=== PATIENT | female | born 1955 ===

== ENCOUNTER 2019-08-25 09:48 | Inpatient (IN) ==
[2019-08-25] MEDS ORDERED: IOPAMIDOL 100 ML BOTTLE IV ONE (09:49)
[2019-08-25] MEDS ORDERED: GADOBENATE DIMEGLUMINE 15 ML/VIAL IV ONE (09:49)
[2019-08-25] MEDS ORDERED: ONDANSETRON 4 MG/2 ML VIAL IV ONE ×3 (10:06→19:01)
[2019-08-25] MEDS ORDERED: 0.9 % SODIUM CHLORIDE 1,000 ML IV ONE ×2 (10:06→11:21)
--- NOTE | 2019-08-25 10:11 | Emergency Department Note ---
Nausea/Vomiting/Diarrhea HPI - General Chief complaint: Nausea/Vomiting/Diarrhea Stated complaint: right leg pain, nausea Time Seen by Provider: 08/25/19 09:52 Source: patient Mode of arrival: ambulatory Limitations: no limitations - History of Present Illness HPI Narrative: 63-year-old female patient presents emergency department once again with chief c omplaint now nausea, vomiting, and diarrhea. Patient was seen yesterday evening by a colleague for developing pain behind her right knee. This was evaluated ultrasound and found not to have a DVT. She was released home with conservative therapy. She tells me while at home she ate a "frozen dinner". Soon afterwards she developed the nausea, vomiting, diarrhea. She denies that food tasting foul or suspicious. She denies any other sick contacts at home with similar symptoms. She is vomited too numerous to count. She is had 3 episodes of diarrhea today. She denies any hematemesis or hematochezia. Patient denies any systemic fever, sweats, chills. Patient denies shortness of breath. Patient denies retrosternal chest pain or palpitations. Patient denies over abdominal pain or cramping. Patient denies dysuria or hematuria. Patient denies focal weakness. Concerning her right knee, patient denies preceding trauma. She does admit that the pain is worsened slightly since being seen yesterday. Patient's past medical history is consistent for asthma. - Related Data Home Medications Medication Instructions Recorded Confirmed albuterol sulfate 2.5 mg/0.5 mL 2.5 mg INHALATION Q20M 08/18/19 08/18/19 solution for nebulization albuterol sulfate 90 mcg/actuation 2 puff INHALATION Q6H PRN 08/18/19 08/18/19 aerosol inhaler compressor, for nebulizer See Rx Instructions .ROUTE 08/18/19 08/18/19 .MEDSUPPLY #1 each conj estrog-medroxyprogest evelina PO QDAY 08/18/19 08/18/19 fluticasone 500 mcg-salmeterol 50 1 inh INHALATION BID 08/18/19 08/18/19 mcg/dose blistr powdr for inhalation montelukast 10 mg tablet 10 mg PO QDAY 08/18/19 08/18/19 Previous Rx's Medication Instructions Recorded azithromycin 250 mg tablet See Rx Instructions PO .COMPLEX #6 08/18/19 tab prednisone 20 mg tablet See Rx Instructions PO QDAY #27 tab 08/18/19 Allergies Allergy/AdvReac Type Severity Reaction Status Date / Time Sulfa (Sulfonamide Allergy Intermediate RASH Verified 08/25/19 09:51 Antibiotics) [SULFA(SULFONAMIDE ANTIBIOTICS)] Review of Systems All systems ED: reviewed and negative except as stated. Past Medical History - Social History smoking status: Never smoker Physical Exam Limitations: no limitations General appearance: alert, in no apparent distress, other (Well-developed, well- nourished, acutely ill-appearing 63-year-old female patient sitting semire cumbent on the emergency room gurney no acute respiratory distress.) Head: atraumatic, normocephalic Eye: Present: normal appearance, PERRL, EOMI. Absent: scleral icterus, conjunctival injection ENT: Present: normal oropharynx, mucous membranes dry Neck: Present: trachea midline. Absent: lymphadenopathy, thyromegaly Chest: Present: symmetric chest wall rise Respiratory: Present: wheezes (Expiratory wheezing heard throughout the chest.), prolonged expiratory phase, decreased breath sounds. Absent: normal lung sounds bilaterally, respiratory distress, rales/crackles, stridor, accessory muscle use Cardiovascular: Present: regular rate, normal rhythm. Absent: systolic murmur, diastolic murmur Abdominal: Present: soft, diminished bowel sounds. Absent: distention, tenderness, guarding, rebound, rigidity, organomegaly, mass Extremities: Present: full ROM, tenderness (Exquisite tenderness elicited to palpation of the popliteal fossa of the right knee. Moderate warmth and redness noted on exam. No obvious fluctuance or pustule. No drainage. No streaking.), normal capillary refill. Absent: normal inspection, pedal edema Back: Present: normal inspection, full ROM Neurological: Present: alert, oriented X3 Psychiatric: Present: normal affect, normal mood Skin: Present: warm, dry, other (Skin changes noted to the right popliteal fossa.) Course Course Narrative: Patient was brought into the emergency department and a history and physical exam was performed. Saline lock was established and routine laboratory studies were drawn. Normal saline was started 1000 mL bolus. Patient was given 4 mg of Zofran IVP. Upon reevaluation patient continues to complain of pain to her right knee. She was given Toradol 30 mg IVP. Review of her laboratory studies show the following: CBC WBC 32.1, granulocyte percent 94.2, granulocyte #3.29, all others normal limits. Chemistry panel sodium 132, glucose 115, ionized calcium 0.99. After reviewing this I discussed the case with my collaborating physician (Dr. Crowley). At this time she has no known focal area of infection other than behind her right knee. With this in mind, she is going be scheduled for an MRI of the right knee to help rule out septic arthropathy. In the interim I will also going to order a, procalcitonin, blood cultures, chest x- ray, and an abdominal CT scan to help rule out other causes of infection. Upon reevaluation patient continues to complain of pain to her knee. With this in mind, she was given Dilaudid 0.[address] scan read by the radiologist as diverticulosis with mild ileus pattern. There was mention of a hemangioma to the right lobe of the liver. No focal area of infection was identified. MRI of the right knee did show severe cellulitis knee stranding into the distal thigh. Radiologist mentions a septic joint with synovitis. There was no evidence of osteomyelitis or abscess. After reviewing on this additional data I discussed the case once again my collaborating physician. At this time it was recommended that I consult the on- call orthopedic surgeon (Dr. Salmon) about the septic arthropathy develop to the patient's right knee. I reached out to the on-call orthopedic surgeon who mentioned that an MRI of the knee showing evidence of infection thorough evaluation. He recommended an attempt at obtaining a fluid sample and sending this for cell count and culture. Knowing this, I sent the patient to radiology for an ultrasound-guided knee aspiration. Approximately 2 milliliters of clear yellow urine was drained from the knee itself. This is sent to the laboratory for Gram stain and culture. Patient was evaluated by the orthopedic surgeons PA and during this time patient expressed worsening fever and generalized malaise. Repeat temperature showed an slight increase to 99. Due to her worsening condition, she was started on vancomycin 1000 mg IV. Upon reevaluation patient continues to complain of some mild nausea. She is vomited x1 this is being emergency department. She was given repeat Zofran 4 mg IVP. Unfortunately 40 minutes later she continues to feel somewhat queasy. Dr. Salmon came down evaluate the patient himself and determined that this is likely not a septic joint but he wants to wait for the official culture report to come back for the fluid that was aspirated. However, due to the patient's worsening condition, leukocytosis, and significant cellulitis I reached out to the hospitalist (Dr. Macario) about having the patient admitted for further evaluation. I discussed the case with the hospitalist who concurred that the patient should be admitted for further evaluation and management. At this time patient is going to be admitted as mentioned, all further treatment decisions, modalities, and ultimate patient disposition will be carried out by the hospitalist with orthopedic surgery consultation. Vital Signs Temperature 96.8 F L 08/25/19 09:49 Pulse Rate 103 H 08/25/19 09:49 Respiratory Rate 16 08/25/19 09:49 Blood Pressure 109/46 08/25/19 09:49 Pulse Oximetry (%) 96 08/25/19 09:49 Temperature 96.8 F L 08/25/19 09:49 Pulse Rate 90 08/25/19 14:55 Respiratory Rate 16 08/25/19 09:49 Blood Pressure 104/63 08/25/19 14:55 Pulse Oximetry (%) 93 08/25/19 14:55 Nausea/Vomiting/Diarrhea - Lab Data Lab results reviewed: Yes I reviewed the patient's lab results. Result diagrams: 08/25/19 10:10 Lab Results 08/25/19 08/25/19 08/25/19 Range/Units 10:10 10:38 10:38 WBC 32.1 H* (4.50-11.00) K/mcL RBC 4.28 (3.59-5.38) M/mcL Hgb 12.8 (11.2-15.7) g/dL Hct 37.8 (34.1-44.9) % POC Hct 36.0 (36.0-48.0) % MCV 88.3 (80.0-100.0) fL MCH 29.9 (26.0-34.0) pg MCHC 33.9 (31.0-36.0) g/dL RDW 12.7 (11.5-14.5) % Plt Count 435 (140-440) K/mcL MPV 9.8 (7.4-10.4) fL Gran % 94.2 H (38.0-78.0) % Lymph % (Auto) 2.9 L (15.5-49.0) % [place] % (Auto) 2.1 (1.0-12.0) % Eos % (Auto) 0.5 (0.0-7.0) % Baso % (Auto) 0.3 (0.0-2.0) % Gran # 30.29 H (1.80-8.00) K/mcL Lymph # (Auto) 0.93 L (1.50-4.80) K/mcL [place] # (Auto) 0.67 (0.10-0.90) K/mcL Eos # (Auto) 0.16 (0.00-0.70) K/mcL Baso # (Auto) 0.09 (0.00-0.30) K/mcL Differential Comment VBG Lactic Acid (0.5-2.0) mmol/L POC Sodium 132 L (133-145) mmol/L POC Potassium 3.6 (3.3-5.1) mmol/L POC Chloride 97 (96-108) mmol/L POC Total CO2 25 (22-30) mmol/L POC BUN 16 (8-23) mg/dl POC Creatinine 0.8 (0.6-1.1) mg/dl POC Glucose 115 H (70-105) mg/dL POC WB Ioniz Calcium 0.99 L (1.16-1.32) mmol/L Procalcitonin 4.11 (<0.10) ng/mL Fluid Source Fluid Color Fluid Appearance Fluid RBC Fluid Tot Cell Count Fluid Nucleated Cells Fluid Neutrophils Fluid Lymphocytes Fluid Monocytes Fluid Eosinophils Fluid Basophils Fluid Plasma Cells Fluid Macrophages Fld Mesothelial Cells Synovial Source Synovial Color Synovial Appearance Synovial Tot Cell Ct Synovial Nuc Cells /cumm Synovial Lymphocytes Synovial Other Cells Synovial Diff Comment 08/25/19 08/25/19 08/25/19 Range/Units 12:19 15:47 15:47 WBC (4.50-11.00) K/mcL RBC (3.59-5.38) M/mcL Hgb (11.2-15.7) g/dL Hct (34.1-44.9) % POC Hct (36.0-48.0) % MCV (80.0-100.0) fL MCH (26.0-34.0) pg MCHC (31.0-36.0) g/dL RDW (11.5-14.5) % Plt Count (140-440) K/mcL MPV (7.4-10.4) fL Gran % (38.0-78.0) % Lymph % (Auto) (15.5-49.0) % [place] % (Auto) (1.0-12.0) % Eos % (Auto) (0.0-7.0) % Baso % (Auto) (0.0-2.0) % Gran # (1.80-8.00) K/mcL Lymph # (Auto) (1.50-4.80) K/mcL [place] # (Auto) (0.10-0.90) K/mcL Eos # (Auto) (0.00-0.70) K/mcL Baso # (Auto) (0.00-0.30) K/mcL Differential Comment VBG Lactic Acid 1.2 (0.5-2.0) mmol/L POC Sodium (133-145) mmol/L POC Potassium (3.3-5.1) mmol/L POC Chloride (96-108) mmol/L POC Total CO2 (22-30) mmol/L POC BUN (8-23) mg/dl POC Creatinine (0.6-1.1) mg/dl POC Glucose (70-105) mg/dL POC WB Ioniz Calcium (1.16-1.32) mmol/L Procalcitonin (<0.10) ng/mL Fluid Source TNP Fluid Color TNP Fluid Appearance TNP Fluid RBC TNP Fluid Tot Cell Count TNP Fluid Nucleated Cells TNP Fluid Neutrophils Not Reportable Fluid Lymphocytes Not Reportable Fluid Monocytes Not Reportable Fluid Eosinophils Not Reportable Fluid Basophils Not Reportable Fluid Plasma Cells Not Reportable Fluid Macrophages Not Reportable Fld Mesothelial Cells Not Reportable Synovial Source Synovial Synovial Color Pale yellow Synovial Appearance Clear Synovial Tot Cell Ct Not Reportable Synovial Nuc Cells 212 /cumm Synovial Lymphocytes Not Reportable Synovial Other Cells Not Reportable Synovial Diff Comment Not Reportable - Radiology Data Radiology results reviewed: Yes I reviewed the patient's radiology results. Ordering Physician: Angel Crowley M.D. Date of Service: 08/25/19 Procedure(s): CT abdomen pelvis w con Accession Number(s): [id number] History: Nausea and elevated white blood cell count TECHNIQUE: The patient was imaged following intravenous contrast scanning during the portal venous phase and the delayed excretory phase from the diaphragm to the symphysis pubis. Sagittal and coronal reformats were created. Radiation exposure was limited using dose reduction technology. FINDINGS: Posteriorly in segment seven of the right lobe of the liver there is a 3 cm mass. Centrally it has low attenuation. It enhances from the periphery. On the delayed images the periphery of the nodule is becoming nearly isodense with adjacent liver parenchyma. This has features characteristic of a hemangioma. No other liver mass is present. The overall size liver is normal. The bile ducts are nondilated. The gallbladder is normal with no stones or thickening of the wall. The spleen and pancreas are normal. The adrenals are normal and symmetric. There is a 1.3 cm cortical cyst anteriorly in the lower portion of the left kidney. The kidneys are otherwise normal, without evidence of inflammation, stone or hydronephrosis. The aorta is normal in caliber. There are a few scattered calcified plaques in the distal aorta. Multiple diverticula are present in the sigmoid colon. There is no evidence of acute diverticulitis. The appendix is noninflamed. There are several fluid-filled loops of borderline distended small intestine in the mid abdomen. It measured 2.8 cm in diameter. The wall does not appear thickened or inflamed. No ascites or adenopathy are present. No intra-abdominal abscess is present. Uterus ovaries and bladder appear normal. IMPRESSION: Diverticulosis Mild ileus pattern. Hemangioma in the right lobe of the liver Dr. Crowley was called with the results Interpreted and Authenticated by: Donovan Grajeda 08/25/19 Ordering Physician: Mohit Fisher PA-C Date of Service: 08/25/19 Procedure(s): MR knee RT wo/w con Accession Number(s): [id number] History: Septic right knee with elevated white blood cell count and tenderness in the popliteal fossa TECHNIQUE: Multiplanar imaging was performed using multiple pulse sequences. MultiHance contrast was injected intravenously and multiphasic fat-suppressed T1-weighted views were obtained. FINDINGS: There is severe cellulitis in the popliteal fossa and skin along the posterior aspect of the knee. No abscess is present. The inflammation extends outside of the field of view in the lower thigh and extends to the proximal calf. There is also myositis in the muscles along the posterior medial side of the popliteal fossa. Small joint effusion is present. The postcontrast view show mild thickening and abnormal enhancement of the synovium, especially in the suprapatellar bursa. There is no bone erosion or bone marrow edema. No spur formation is present. The joint spaces are normal in width and alignment. There is no apparent loss of articular cartilage. Medial and lateral menisci are normal. The anterior and posterior cruciate ligaments are intact. Medial and lateral collateral ligaments are also intact. IMPRESSION: Severe cellulitis along the posterior aspect of the knee standing into the distal thigh. Septic joint with synovitis No evidence of osteomyelitis or abscess Dr. Crowley was called with the results Interpreted and Authenticated by: Donovan Grajeda 08/25/19 Ordering Physician: Mohit Fisher PA-C Date of Service: 08/25/19 Procedure(s): US guided bea/sergei large joint Accession Number(s): [id number] History: Cellulitis around the right knee with small joint effusion TECHNIQUE: The procedure and risks were explained and the patient consented. A very small suprapatellar joint effusion was localized. The overlying skin was prepped with ChloraPrep and then anesthetized with 1% lidocaine. Using ultrasound guidance a 20-gauge needle was inserted into the joint space. 2 cc of clear slightly yellow-colored fluid was removed and sent to laboratory for analysis. All of the visualized fluid was drained. She tolerated the procedure well without complication. IMPRESSION: Successful aspiration of fluid from the right knee Interpreted and Authenticated by: Donovan Grajeda 08/25/19 Disposition Pt seen by [employer]/PA only: Yes Clinical Impression: Cellulitis of right knee Nausea & vomiting Qualifiers: Vomiting type: unspecified Vomiting Intractability: non-intractable Qualified Code(s): R11.2 - Nausea with vomiting, unspecified Disposition: Xfer As Inpt ([facility]) Condition: Fair Additional Instructions: Patient is going to be admitted to the hospital under the care of the hospitalist (Dr. Landeros). All further treatment decisions, modalities, and ultimate patient disposition will be carried out by the hospitalist with orthopedic surgery in consultation. Referrals: Petty Cornejo MD [Primary Care Provider] -
[2019-08-25] MEDS ORDERED: ACETAMINOPHEN 325 MG TABLET PO ONE (10:42)
[2019-08-25 10:51] LABS: POC Blood Urea Nitrogen 16 mg/dl (8-23); POC CO2 25 mmol/L (22-30); POC Calcium, Ionized 0.99 mmol/L (1.16-1.32); POC Chloride 97 mmol/L (96-108); POC Creatinine 0.8 mg/dl (0.6-1.1); POC Glucose, Random 115 mg/dL (70-105); POC Potassium 3.6 mmol/L (3.3-5.1); POC Sodium 132 mmol/L (133-145)
[2019-08-25] MEDS ORDERED: cefTRIAXone 1 GM VIAL IV ONE (11:15)
[2019-08-25] MEDS ORDERED: KETOROLAC 30 MG/ML VIAL IV ONE (11:21)
[2019-08-25 12:03] LABS: Basophils # (Auto) 0.09 K/mcL (0.00-0.30); Basophils % (Auto) 0.3 % (0.0-2.0); Eosinophils # (Auto) 0.16 K/mcL (0.00-0.70); Eosinophils % (Auto) 0.5 % (0.0-7.0); Granulocytes % (Auto) 94.2 % (38.0-78.0); Hematocrit 37.8 % (34.1-44.9); Hemoglobin 12.8 g/dL (11.2-15.7); Lymphocytes # (Auto) 0.93 K/mcL (1.50-4.80); Lymphocytes % (Auto) 2.9 % (15.5-49.0); Mean Cell Volume 88.3 fL (80.0-100.0); Mean Corpuscular HGB Conc 33.9 g/dL (31.0-36.0); Mean Platelet Volume 9.8 fL (7.4-10.4); Monocytes # (Auto) 0.67 K/mcL (0.10-0.90); Monocytes % (Auto) 2.1 % (1.0-12.0); Platelet Count 435 K/mcL (140-440); RBC 4.28 M/mcL (3.59-5.38); Red Cell Distribution Width 12.7 % (11.5-14.5); WBC 32.1 K/mcL (4.50-11.00)
--- NOTE | 2019-08-25 14:09 | Cat Scan Report ---
History: Nausea and elevated white blood cell count TECHNIQUE: The patient was imaged following intravenous contrast scanning during the portal venous phase and the delayed excretory phase from the diaphragm to the symphysis pubis. Sagittal and coronal reformats were created. Radiation exposure was limited using dose reduction technology. FINDINGS: Posteriorly in segment seven of the right lobe of the liver there is a 3 cm mass. Centrally it has low attenuation. It enhances from the periphery. On the delayed images the periphery of the nodule is becoming nearly isodense with adjacent liver parenchyma. This has features characteristic of a hemangioma. No other liver mass is present. The overall size liver is normal. The bile ducts are nondilated. The gallbladder is normal with no stones or thickening of the wall. The spleen and pancreas are normal. The adrenals are normal and symmetric. There is a 1.3 cm cortical cyst anteriorly in the lower portion of the left kidney. The kidneys are otherwise normal, without evidence of inflammation, stone or hydronephrosis. The aorta is normal in caliber. There are a few scattered calcified plaques in the distal aorta. Multiple diverticula are present in the sigmoid colon. There is no evidence of acute diverticulitis. The appendix is noninflamed. There are several fluid-filled loops of borderline distended small intestine in the mid abdomen. It measured 2.8 cm in diameter. The wall does not appear thickened or inflamed. No ascites or adenopathy are present. No intra-abdominal abscess is present. Uterus ovaries and bladder appear normal. IMPRESSION: Diverticulosis Mild ileus pattern. Hemangioma in the right lobe of the liver Dr. Crowley was called with the results Interpreted and Authenticated by: Donovan Grajeda 08/25/19
--- NOTE | 2019-08-25 14:21 | Magnetic Resonance Report ---
History: Septic right knee with elevated white blood cell count and tenderness in the popliteal fossa TECHNIQUE: Multiplanar imaging was performed using multiple pulse sequences. MultiHance contrast was injected intravenously and multiphasic fat-suppressed T1-weighted views were obtained. FINDINGS: There is severe cellulitis in the popliteal fossa and skin along the posterior aspect of the knee. No abscess is present. The inflammation extends outside of the field of view in the lower thigh and extends to the proximal calf. There is also myositis in the muscles along the posterior medial side of the popliteal fossa. Small joint effusion is present. The postcontrast view show mild thickening and abnormal enhancement of the synovium, especially in the suprapatellar bursa. There is no bone erosion or bone marrow edema. No spur formation is present. The joint spaces are normal in width and alignment. There is no apparent loss of articular cartilage. Medial and lateral menisci are normal. The anterior and posterior cruciate ligaments are intact. Medial and lateral collateral ligaments are also intact. IMPRESSION: Severe cellulitis along the posterior aspect of the knee standing into the distal thigh. Septic joint with synovitis No evidence of osteomyelitis or abscess Dr. Crowley was called with the results Interpreted and Authenticated by: Donovan Grajeda 08/25/19
[2019-08-25] MEDS: HYDROmorphone 2 MG/ML VIAL IV PRN ×2 (14:25→17:01)
--- NOTE | 2019-08-25 15:00 | Emergency Department Note ---
ED Note Addendum Note Addendum: I saw this patient with Mohit Fisher PA-C and examined her myself. I agree with his evaluation management documentation. We discussed work-up of her right knee pain. Suspect septic arthritis. MRI confirms. Mohit discussed case with Dr. Salmon and he recommended arthrocentesis. Antibiotics are ordered. Arthrocentesis was done and results are pending. She was admitted to hospitalist with orthopedics consulted
--- NOTE | 2019-08-25 16:27 | Ultrasound Report ---
History: Cellulitis around the right knee with small joint effusion TECHNIQUE: The procedure and risks were explained and the patient consented. A very small suprapatellar joint effusion was localized. The overlying skin was prepped with ChloraPrep and then anesthetized with 1% lidocaine. Using ultrasound guidance a 20-gauge needle was inserted into the joint space. 2 cc of clear slightly yellow-colored fluid was removed and sent to laboratory for analysis. All of the visualized fluid was drained. She tolerated the procedure well without complication. IMPRESSION: Successful aspiration of fluid from the right knee Interpreted and Authenticated by: Donovan Grajeda 08/25/19
[2019-08-25] MEDS ORDERED: VANCOMYCIN 1,000 MG in 0.9 % SODIUM CHLORIDE 250 ML IV ONE (16:37)
[2019-08-25 17:49] LABS: Appearance,Synovial Fluid CLEAR; Color,Synovial Fluid PALE YELLOW; Nucleated Cells,Synovial Fld 212 /cumm
--- NOTE | 2019-08-25 17:53 | Orthopedic History & Physical ---
History of Present Illness Patient information: Note initiated : 08/25/19 at 5:48 pm Service Date, if different from initiated Date: [] Patient: Yoselin Escobedo a 63 y/o F admitted on for Right Leg Pain, Nausea. Chief Complaint: [] HPI: Ms. Escobedo is a 63 year old female who presented to the ED today with worsening nausea and vomiting. She has felt chilled at home but had no fevers. She has had worsening pain in the posterior aspect of the right knee in the popliteal fossa. Redness in the area since yesterday. She was diagnosed with a cellulitis in the ED prompting orthopaedic evaluation. Associated symptoms include a wound on her right foot from eczema and a recent redness in her left finger that has since resolved. Also recently placed on steroids for some "chest congestion" which has helped but she did not use her Z pack as she was instructed not to. She denies any CP, GUILLEN, fever, numbness/tingling, urinary changes, dysuria, or any other acute symptoms. Review of Systems Constitutional: as per HPI Nose, mouth and throat: as per HPI Cardiovascular: as per HPI Respiratory: as per HPI Gastrointestinal: as per HPI Genitourinary: as per HPI Musculoskeletal: as per HPI Integumentary: as per HPI Neurological: as per HPI Psychiatric: as per HPI Past History Past medical history: asthma, eczema Medications and Allergies Home Medications Medication Instructions Recorded Confirmed Type albuterol sulfate 2.5 mg/0.5 mL 2.5 mg INHALATION Q20M 08/18/19 08/18/19 History solution for nebulization albuterol sulfate 90 mcg/actuation 2 puff INHALATION Q6H PRN 08/18/19 08/18/19 History aerosol inhaler azithromycin 250 mg tablet See Rx Instructions PO .COMPLEX #6 08/18/19 08/18/19 Rx tab compressor, for nebulizer See Rx Instructions .ROUTE 08/18/19 08/18/19 History .MEDSUPPLY #1 each conj estrog-medroxyprogest evelina PO QDAY 08/18/19 08/18/19 History fluticasone 500 mcg-salmeterol 50 1 inh INHALATION BID 08/18/19 08/18/19 History mcg/dose blistr powdr for inhalation montelukast 10 mg tablet 10 mg PO QDAY 08/18/19 08/18/19 History prednisone 20 mg tablet See Rx Instructions PO QDAY #27 tab 08/18/19 08/18/19 Rx Allergies Allergy/AdvReac Type Severity Reaction Status Date / Time Sulfa (Sulfonamide Allergy Intermediate RASH Verified 08/25/19 09:51 Antibiotics) [SULFA(SULFONAMIDE ANTIBIOTICS)] Results - Labs Result Diagrams: 08/25/19 10:10 Labs: Abnormal lab results 08/25/19 08/25/19 Range/Units 10:10 10:38 WBC 32.1 H* (4.50-11.00) K/mcL Gran % 94.2 H (38.0-78.0) % Lymph % (Auto) 2.9 L (15.5-49.0) % Gran # 30.29 H (1.80-8.00) K/mcL Lymph # (Auto) 0.93 L (1.50-4.80) K/mcL POC Sodium 132 L (133-145) mmol/L POC Glucose 115 H (70-105) mg/dL POC WB Ioniz Calcium 0.99 L (1.16-1.32) mmol/L H & H 08/25/19 Range/Units 10:10 Hgb 12.8 (11.2-15.7) g/dL Hct 37.8 (34.1-44.9) % - Diagnostic results Knee MRI: report reviewed Assessment and Plan (1) Cellulitis of knee, right After history and Physical exam and MRI the clinical picture is consistent with cellulitis of the right knee popliteal fossa. On exam she does not have joint tenderness or an effusion which is inconsistent with septic arthritis. An US guided aspiration of the right knee was obtained and results are pending. I counseled the patient on treatment options and if the synovial fluid shows signs of infection we will proceed with the plan of an irrigation and drainage of the right knee arthroscopically. Otherwise she will continue treatment for her cellulitis with IV antibiotics per the hospitalists and ED. Status: Acute Physical Examination Vital signs: Temp Pulse Resp BP Pulse Ox 96.8 F L 90 16 104/63 93 08/25/19 09:49 08/25/19 14:55 08/25/19 09:49 08/25/19 14:55 08/25/19 14:55 General appearance: no acute distress Eyes pulmonary: nonicteric ENT: oropharynx dry Neck: supple, no lymphadenopathy Effort: normal Auscultation: bilateral: clear Cardiovascular: regular rate and rhythm Gastrointestinal: normoactive bowel sounds, soft, non-tender, non-distended Integumentary: other (quarter sized scab with surrounding redness on dorsum of foot, redness in posterior aspect of knee with moderate swelling about the size of a sheet of paper) Extremities: no edema, pink and warm, no ischemia or petechiae Musculoskeletal: no deformities, other (no tenderness in right knee but she does have pain with flexion secondary to swelling and cellulitis of popliteal fossa, no calf tenderness) normal mental status, CN II-XII normal, other (NVI in bilateral lower extremities)
[2019-08-25 18:19] LABS: Appearance,Urine HAZY; Bacteria,Urine FEW /hpf (0); Bilirubin,Urine NEG (NEG); Color,Urine YELLOW; Culture Indicated,Urine NO; Glucose,Urine (UA) NEGATIVE (NEG); Ketones,Urine 5/TR mg/dL (NEG); Leukocyte Esterase,Urine NEG /uL (NEG); Mucus,Urine MANY /hpf (0); Nitrate,Urine NEG (NEG); Protein,Urine 100 mg/dL (NEG); Specific Gravity,Urine 1.017 (1.000-1.035); Urine Blood NEG mg/dL (<0.03); Urine Hyaline Cast 8 /lpf (0-2); Urine RBC 3 /hpf (0-1); Urine Squamous Epithelial Cell 9 /hpf (0-4); Urine Transitional Epi Cells < 1 /hpf (0-2); Urine WBC 9 /hpf (0-4); Urobilinogen,Urine NEG (NEG)
[2019-08-25] MEDS ORDERED: NALOXONE HCL 0.4 MG/ML VIAL IV PRN (18:26)
[2019-08-25] MEDS ORDERED: SENNOSIDES 1 TABLET PO PRN (18:26)
[2019-08-25] MEDS ORDERED: IPRATROPIUM/ALBUTEROL 3 ML AMPUL.NEB NEB PRN (18:26)
[2019-08-25] MEDS ORDERED: ONDANSETRON 4 MG/2 ML VIAL IV PRN (18:26)
[2019-08-25 18:30] LABS: Lymphocytes,Synovial Fluid 11 %; Neutrophils,Synovial Fluid 80 % (0-25); Other Cells,Synovial Fluid 9 %
[2019-08-25] MEDS ORDERED: cefTRIAXone 1 GM in DEXTROSE 5% IN WATER 50 ML IV SCH (18:30)
[2019-08-25] MEDS ORDERED: VANCOMYCIN 1,000 MG in 0.9 % SODIUM CHLORIDE 250 ML IV SCH (18:45)
--- NOTE | 2019-08-25 18:48 | Internal Med History&Physical ---
Medical - H&P: HPI Patient information: Note initiated : 08/25/19 at 6:44 pm Service Date, if different from initiated Date: [] Patient: Yoselin Escobedo a 63 y/o F admitted on for Right Leg Pain, Nausea. Chief Complaint: [Right knee pain for 2 days History of present illness: Ms. Escobedo is a 63 year old F with a past medical history of asthma who presented to the ER due to right knee redness and pain which started yesterday afternoon at 4:30 PM associated with nausea vomiting. Today patient started to have abdominal pain and watery diarrhea. She has not had 5 bowel movements so far. Otherwise patient denies fever, chills, headache, chest pain, shortness of breath, dysuria, or problems with other joints. Denies injury, recent travel or insect bites. Patient has never had similar problem in the past. In the ER, arthrocentesis was performed and 1 dose of vancomycin was given. When I saw this patient in the ER, other than the symptoms mentioned above, patient was fine. - Constitutional Constitutional: Present: as per HPI - EENT Ears: Present: as per HPI Nose, mouth and throat: Present: as per HPI - Cardiovascular Cardiovascular: Present: as per HPI. Absent: chest pain - Respiratory Respiratory: Present: as per HPI. Absent: cough, dyspnea, hemoptysis - Gastrointestinal Gastrointestinal: Present: as per HPI, abdominal pain, diarrhea, nausea, vomiting - Musculoskeletal Musculoskeletal: Present: arthralgias - Neurological Neurological: Present: as per HPI - Psychiatric Psychiatric: Present: as per HPI - Endocrine Endocrine: Present: as per HPI - Hematologic/Lymphatic Hematologic/Lymphatic: Present: as per HPI Medical - H&P: PMH Medical history: Asthma Family history: reviewed and not pertinent (Mother had a diabetes and melanoma) Social history: Uses marijuana sometimes Smoking status: Never smoker Drug use: marijuana Alcohol use: none Medical - H&P: Meds Home Medications Medication Instructions Recorded Confirmed Type albuterol sulfate 2.5 mg/0.5 mL 2.5 mg INHALATION Q20M 08/18/19 08/18/19 History solution for nebulization albuterol sulfate 90 mcg/actuation 2 puff INHALATION Q6H PRN 08/18/19 08/18/19 History aerosol inhaler azithromycin 250 mg tablet See Rx Instructions PO .COMPLEX #6 08/18/19 08/18/19 Rx tab compressor, for nebulizer See Rx Instructions .ROUTE 08/18/19 08/18/19 History .MEDSUPPLY #1 each conj estrog-medroxyprogest evelina PO QDAY 08/18/19 08/18/19 History fluticasone 500 mcg-salmeterol 50 1 inh INHALATION BID 08/18/19 08/18/19 History mcg/dose blistr powdr for inhalation montelukast 10 mg tablet 10 mg PO QDAY 08/18/19 08/18/19 History prednisone 20 mg tablet See Rx Instructions PO QDAY #27 tab 08/18/19 08/18/19 Rx Allergies Allergy/AdvReac Type Severity Reaction Status Date / Time Sulfa (Sulfonamide Allergy Intermediate RASH Verified 08/25/19 09:51 Antibiotics) [SULFA(SULFONAMIDE ANTIBIOTICS)] Medical - H&P: Exam - Constitutional Vitals: Temp Pulse Resp BP Pulse Ox 96.8 F L 90 16 104/63 93 08/25/19 09:49 08/25/19 14:55 08/25/19 09:49 08/25/19 14:55 08/25/19 14:55 General appearance: cooperative, no acute distress - Head Head exam: Present: atraumatic, normal inspection, normocephalic - Eye Eye exam: Present: EOMI, PERRL - Expanded Eye Exam Sclera: bilateral: normal inspection - ENT ENT exam: Present: mucous membranes moist - Neck Neck exam: Present: full ROM - Expanded Neck Exam Neck exam: Absent: tenderness - Respiratory Respiratory exam: Present: normal respiratory exam. Absent: rales, rhonchi, wheezes - Cardiovascular Cardiovascular exam: Present: normal rate and rhythm, +S1, +S2 - GI/Abdominal GI/Abdominal exam: Present: normal bowel sounds, soft, tenderness (very mild tenderness over epigastric area) - Extremities Exam Extremities exam: Present: joint swelling, tenderness (posterior aspect of right knee erythema and tenderness) - Neurological Exam Neurological exam: Present: alert, CN II-XII intact, oriented X3, reflexes normal - Psychiatric Psychiatric exam: Present: flat affect, normal mood - Skin Skin exam: Present: intact Medical - H&P: Reslt - Labs CBC & Chem 7: 08/25/19 10:10 Labs: Short CBC 08/25/19 Range/Units 10:10 WBC 32.1 H* (4.50-11.00) K/mcL Hgb 12.8 (11.2-15.7) g/dL Hct 37.8 (34.1-44.9) % Plt Count 435 (140-440) K/mcL Urine 08/25/19 Range/Units 14:19 Urine Color Yellow Urine Appearance Hazy Urine pH 6.0 (5.0-9.0) Ur Specific Slater 1.017 (1.000-1.035) Urine Protein 100 A (NEG) mg/dL Urine Glucose (UA) Negative (NEG) mg/dL Medical - H&P: A/P - Narrative A/P Narrative: Assessment: 1. Sepsis 2nd to cellulitis of right knee 2. Acute cellulitis of the right knee popliteal fossa 3. Asthma 4. Acute gastroenteritis 5. Mild ileus 6. Hemangioma, right lobe of the liver Plan: 1. Blood and right knee aspiration culture Lactic acid 1.2 IV fluid resuscitation Antibiotics 2. MRI right knee showed Severe cellulitis along the posterior aspect of the knee standing into the distal thigh. irrigation and drainage of the right knee arthroscopically was done by orthopedics team on 08/[address] Mckeon, who agreed with vanc and ceftriaxone Pending culture 3. asthma stable, continue home meds 4. Clear liquid and IVF repeat electrolytes in am 5. Liver hemangioma could be caused by hormonal therapy. Stable Follow with the PCP 6. DVT prophylaxis: Lovenox 7. CODE STATUS: Full
[2019-08-25] MEDS ORDERED: ONDANSETRON 4 MG/2 ML VIAL ONE (20:03)
[2019-08-25] MEDS: 0.9 % SODIUM CHLORIDE 1,000 ML IV SCH (20:06)
[2019-08-25] MEDS: 0.9 % SODIUM CHLORIDE 10 ML SYRINGE IV SCH (20:48)
[2019-08-25] MEDS: DOCUSATE SODIUM 100 MG CAPSULE PO SCH (20:48)
[2019-08-25] MEDS: traMADol 50 MG TABLET PO PRN (21:44)
[2019-08-26 03:12] LABS: ALT/SGPT 17 U/l (0-40); AST/SGOT 20 U/l (0-37); Albumin 3.9 gm/dL (3.2-5.2); Albumin/Globulin Ratio 1.3 (1.0-2.3); Alkaline Phosphatase 88 U/L (39-117); Bilirubin,Total 0.7 mg/dL (0.0-1.0); Blood Urea Nitrogen 17 mg/dl (8-23); Calcium 8.7 mg/dl (8.6-10.4); Carbon Dioxide 21 mmol/L (22-30); Globulin 3.1 gm/dL (2.2-3.7); Glomerular Filtration Rate 69; Glucose 85 mg/dL (70-105)
[2019-08-26 03:14] LABS: Chloride 90 mmol/L (96-108)
[2019-08-26] MEDS: traMADol 50 MG TABLET PO PRN ×2 (05:37→13:46)
[2019-08-26] MEDS: 0.9 % SODIUM CHLORIDE 10 ML SYRINGE IV SCH ×3 (05:42→23:35)
[2019-08-26 07:18] LABS: ALT/SGPT 18 U/l (0-40); AST/SGOT 16 U/l (0-37); Albumin 2.7 gm/dL (3.2-5.2); Albumin/Globulin Ratio 0.9 (1.0-2.3); Alkaline Phosphatase 80 U/L (39-117); Bilirubin,Total 0.4 mg/dL (0.0-1.0); Blood Urea Nitrogen 14 mg/dl (8-23); Calcium 7.4 mg/dl (8.6-10.4); Carbon Dioxide 18 mmol/L (22-30); Chloride 103 mmol/L (96-108); Glomerular Filtration Rate 80; Glucose 64 mg/dL (70-105)
[2019-08-26] MEDS ORDERED: ALBUTEROL SULFATE 1 PUFF INHALER INH PRN (07:23)
[2019-08-26] MEDS: ENOXAPARIN 40 MG/0.4 ML SYRINGE SQ SCH (07:44)
[2019-08-26] MEDS: MONTELUKAST 10 MG TABLET PO SCH (07:44)
[2019-08-26] MEDS: PANTOPRAZOLE 40 MG TABLET PO SCH (07:44)
[2019-08-26] MEDS: FLUTICASONE/SALMETEROL 500/50 INHALER #14 INH SCH ×3 (07:45→21:13)
[2019-08-26] MEDS ORDERED: VANCOMYCIN PER PHARMACY IV SCH (07:45)
[2019-08-26] MEDS: DOCUSATE SODIUM 100 MG CAPSULE PO SCH ×2 (07:46→23:33)
[2019-08-26 08:43] LABS: Band Neutrophils % 61 % (0-10); Dohle Bodies 1+ (NONE SEEN); Lymphocytes % 1 % (15-49); Monocytes % (Manual) 3 % (1-12); Myelocytes % 1 % (0-0); Platelet Estimate NORMAL (NORMAL); RBC Fragments RARE (NONE SEEN); RBC Morphology ABNORM (NORMAL); Segmented Neutrophils % 34 % (38-78)
[2019-08-26] MEDS: VANCOMYCIN 1,000 MG in 0.9 % SODIUM CHLORIDE 250 ML IV SCH (09:00)
[2019-08-26] MEDS ORDERED: cefTRIAXone 1 GM VIAL IV SCH (09:00)
[2019-08-26 09:18] LABS: Hematocrit 33.8 % (34.1-44.9); Hemoglobin 11.2 g/dL (11.2-15.7); Mean Cell Volume 89.9 fL (80.0-100.0); Mean Corpuscular HGB Conc 33.1 g/dL (31.0-36.0); Mean Platelet Volume 9.9 fL (7.4-10.4); Platelet Count 334 K/mcL (140-440); RBC 3.76 M/mcL (3.59-5.38); WBC 33.3 K/mcL (4.50-11.00)
[2019-08-26] MEDS: 0.9 % SODIUM CHLORIDE 1,000 ML IV SCH (10:53)
[2019-08-26] MEDS ORDERED: VANCOMYCIN ORAL SOL 1,000 MG/10 ML BOTTLE PO SCH (13:00)
--- NOTE | 2019-08-26 13:56 | Internal Med Progress Note ---
Medical - PN: Subj Patient information: Note initiated : 08/26/19 at 1:53 pm Service Date, if different from initiated Date: [] Patient: Yoselin Escobedo 63 y/o F admitted on 08/25/19 for Right Leg Pain, Nausea. Chief Complaint: [] Interval history 08/25 Patient feels better. No nausea. She had only 1 bowel movement this morning. She still has right knee pain. Patient still has low grade fever, 100.9 White blood cells 43 today, it was 32 yesterday - Constitutional Vitals: Vital Signs Temp Pulse Resp BP Pulse Ox 100.9 F H 97 H 15 102/55 96 08/26/19 08:11 08/26/19 10:38 08/26/19 10:38 08/26/19 10:01 08/26/19 10:01 Period Temp Pulse Resp BP Sys/Werner Pulse Ox Last 24 Hr 96.8 F-100.9 F 86-98 15-20 96-137/51-80 93-99 Intake and Output 08/25/19 08/26/19 08/26/19 21:59 05:59 13:59 Intake Total 2861 876 8650 Output Total 225 475 Balance 1025 -295 1490 Weight 53.479 kg Intake & Output: Intake & Output 08/25/19 08/26/19 08/26/19 21:59 05:59 13:59 Intake Total 7878 440 1257 Output Total 225 475 Balance 1025 -295 1490 Weight 53.479 kg Intake: IV 1250 1250 Sodium Chloride 0.9% 1,000 ml @ 1000 1000 75 mls/hr IV .[id number] [facility] Rx#: [id number] Vancomycin 1,000 mg In Sodium 250 250 Chloride 0.9% 250 ml @ 250 mls/ hr IV Q24H [facility] Rx#:[id number] Oral 180 240 Output: Void Amount 225 475 Other: Meal Breakfast Percent of Meal Consumed 100% Feeding Ability Independent Urine Appearance Clear Clear Clear Sediment Sediment Urine Color Dark Yellow Dark Yellow Dark Yellow Urine Odor Strong Stool Size Small Small Stool Color Green Brown Green Stool Consistency Liquid Liquid # Voids 1 # Bowel Movements 1 - Additional findings Additional findings: General appearance: cooperative, no acute distress - Head Head exam: Present: atraumatic, normal inspection, normocephalic - Eye Eye exam: Present: EOMI, PERRL - Expanded Eye Exam Sclera: bilateral: normal inspection - ENT ENT exam: Present: mucous membranes moist - Neck Neck exam: Present: full ROM - Expanded Neck Exam Neck exam: Absent: tenderness - Respiratory Respiratory exam: Present: normal respiratory exam. Absent: rales, rhonchi, wheezes - Cardiovascular Cardiovascular exam: Present: normal rate and rhythm, +S1, +S2 - GI/Abdominal GI/Abdominal exam: Present: normal bowel sounds, soft, tenderness (very mild tenderness over epigastric area) - Extremities Exam Extremities exam: Present: joint swelling, tenderness (posterior aspect of right knee erythema and tenderness), erythema (area bigger than yesterday) - Neurological Exam Neurological exam: Present: alert, CN II-XII intact, oriented X3, reflexes normal - Psychiatric Psychiatric exam: Present: flat affect, normal mood - Skin Skin exam: Present: intact Medical - PN: Obj Da - Labs CBC & Chem 7: 08/26/19 05:15 08/26/19 05:15 Labs: Abnormal Lab Results 08/26/19 08/26/19 08/26/19 05:15 05:15 05:15 WBC 33.3 H* Hct 33.8 L Gran % Lymph % (Auto) Gran # Lymph # (Auto) Seg Neutrophils % 34 L Band Neutrophils % 61 H Lymphocytes % 1 L Myelocytes % 1 H WBC Morphology Abnorm A Dohle Bodies 1+ A RBC Morphology Abnorm A RBC Fragments Rare A POC Sodium Sodium Chloride Carbon Dioxide 18 L Anion Gap Glucose 64 L POC Glucose Calcium 7.4 L POC WB Ioniz Calcium NT-Pro-B Natriuret Pep 2840.0 H Total Protein 5.7 L Albumin 2.7 L Albumin/Globulin Ratio 0.9 L Urine Protein Urine Ketones Urine RBC Urine WBC Ur Squamous Epith Cells Urine Bacteria Hyaline Casts Urine Mucus Synovial Neutrophils 08/25/19 08/25/19 08/25/19 15:47 14:19 10:38 WBC Hct Gran % Lymph % (Auto) Gran # Lymph # (Auto) Seg Neutrophils % Band Neutrophils % Lymphocytes % Myelocytes % WBC Morphology Dohle Bodies RBC Morphology RBC Fragments POC Sodium Sodium 129 L Chloride 90 L Carbon Dioxide 21 L Anion Gap 18.0 H Glucose POC Glucose Calcium POC WB Ioniz Calcium NT-Pro-B Natriuret Pep Total Protein Albumin Albumin/Globulin Ratio Urine Protein 100 A Urine Ketones 5/tr A Urine RBC 3 H Urine WBC 9 H Ur Squamous Epith Cells 9 H Urine Bacteria Few A Hyaline Casts 8 H Urine Mucus Many A Synovial Neutrophils 80 H 08/25/19 08/25/19 10:38 10:10 WBC 32.1 H* Hct Gran % 94.2 H Lymph % (Auto) 2.9 L Gran # 30.29 H Lymph # (Auto) 0.93 L Seg Neutrophils % Band Neutrophils % Lymphocytes % Myelocytes % WBC Morphology Dohle Bodies RBC Morphology RBC Fragments POC Sodium 132 L Sodium Chloride Carbon Dioxide Anion Gap Glucose POC Glucose 115 H Calcium POC WB Ioniz Calcium 0.99 L NT-Pro-B Natriuret Pep Total Protein Albumin Albumin/Globulin Ratio Urine Protein Urine Ketones Urine RBC Urine WBC Ur Squamous Epith Cells Urine Bacteria Hyaline Casts Urine Mucus Synovial Neutrophils Meds: Medications Acetaminophen (Tylenol) 650 mg PO Q6HP PRN; Protocol PRN Reason: Per Pain Protocol/Fever > 101 Albuterol Sulfate (Ventolin) 2 puff INH Q6HP PRN PRN Reason: Shortness Of Breath Albuterol/Ipratropium (Duoneb) 3 ml NEB Q6HRT PRN PRN Reason: Shortness Of Breath Ceftriaxone Sodium (Rocephin) 1 gm IV Q24H [facility] Last Admin: 08/26/19 07:53 Dose: 1 gm Documented by: Docusate Sodium (Colace) 100 mg PO BID [facility] Last Admin: 08/26/19 07:46 Dose: Not Given Documented by: Enoxaparin Sodium (Lovenox) 40 mg SQ DAILY [facility] Last Admin: 08/26/19 07:44 Dose: 40 mg Documented by: Sodium Chloride (Sodium Chloride 0.9%) 1,000 mls @ 75 mls/hr IV .[id number] [facility] Last Admin: 08/26/19 10:53 Dose: 75 mls/hr Documented by: Vancomycin HCl 1,000 mg/ (Sodium Chloride) 250 mls @ 250 mls/hr IV Q24H [facility]; Protocol Last Infusion: 08/26/19 10:05 Dose: Infused Documented by: Montelukast Sodium (Singular) 10 mg PO QDAY [facility] Last Admin: 08/26/19 07:44 Dose: 10 mg Documented by: Morphine Sulfate (Morphine) 2 mg IV Q2HP PRN PRN Reason: Severe Pain Last Admin: 08/26/19 07:45 Dose: 2 mg Documented by: Naloxone HCl (Narcan) 0.1 mg IV Q2MIN PRN PRN Reason: Opiate Reversal Ondansetron HCl (Zofran) 4 mg IV Q4HP PRN; Protocol PRN Reason: Nausea And Vomiting Pantoprazole Sodium (Protonix) 40 mg PO QAMAC [facility] Last Admin: 08/26/19 07:44 Dose: 40 mg Documented by: Pneumococcal Polyvalent Vaccine (Pneumovax 23) 0.5 ml IM .ONCE ONE Stop: 08/27/19 10:01 Fluticasone/Salmeterol (Advair 500-50 Diskus) 1 puff INH BID [facility] Last Admin: 08/26/19 09:00 Dose: 1 puff Documented by: Rula (Senokot) 2 tab PO HSP PRN PRN Reason: Constipation Sodium Chloride (Saline Flush) 10 ml IV Q8 [facility] Last Admin: 08/26/19 05:42 Dose: Not Given Documented by: Tramadol HCl (Ultram) 50 mg PO Q6HP PRN PRN Reason: Pain Last Admin: 08/26/19 13:46 Dose: 50 mg Documented by: Vancomycin HCl (Vancomycin Per Pharmacy) 1 order IV UD [facility] Vancomycin HCl (Vancomycin Oral Keshia) 125 mg PO QID [facility]; Protocol Last Admin: 08/26/19 13:00 Dose: 125 mg Documented by: Medical - PN: A/P - Time Spent With Patient Total time spent is greater than 50% in coordination of care (as documented) at patient's floor/unit and/or counseling patient: - Narrative A/P Narrative: Assessment: 1. Sepsis 2nd to cellulitis of right knee 2. Acute cellulitis of the right knee popliteal fossa 3. Asthma 4. Acute gastroenteritis 5. Mild ileus 6. Hemangioma, right lobe of the liver Plan: 1. Blood and right knee aspiration culture Lactic acid 1.2 IV fluid resuscitation Lactic acid normal 2. MRI right knee showed Severe cellulitis along the posterior aspect of the knee standing into the distal thigh. irrigation and drainage of the right knee arthroscopically was done by orthopedics team on 08/24 Patient still has mild diffuse and white blood cells 33 today it was 33 yesterday. ID consulted, as per Dr. Mckeon, discontinue ceftriaxone and continue vanco only Pending culture 3. asthma stable, continue home meds 4. Clear liquid and IVF Improving Full liquid repeat electrolytes in am As per Dr. Mckeon, check c diff and started po vanco 125mg QID. 5. Liver hemangioma could be caused by hormonal therapy. Stable. Follow with the PCP 6. DVT prophylaxis: Lovenox 7. CODE STATUS: Full Medical - PN: Qual - VTE Deep Vein Thrombosis/Pulmonary Embolism Present on Admission: No
[2019-08-26] MEDS: ACETAMINOPHEN 325 MG TABLET PO PRN (18:25)
--- NOTE | 2019-08-26 20:27 | Infectious Disease Consult ---
History of Present Illness Patient information: Note initiated : 08/26/19 at 8:19 pm Service Date, if different from initiated Date: [] Patient: Yoselin Escobedo 63 y/o F admitted on 08/25/19 for Right Leg Pain, Nausea. Chief Complaint: [] Consult date: 08/26/19 Requesting Physician: Soto Landeros Reason for Consult: high WBCs in light of right LE cellulitis Chief complaint: my thigh hurts History of present illness: 63 year old lady admitted to [facility] after worsening redness, swelling and pain in right thigh and leg. It started following which pt was seen in [facility] ED, underwent LE US which r/o any DVT. Pt returned back to [facility] on Wednesday due to symptoms not getting better. Pt also noticed diarrhea (3 loose stools), nausea- vomting since evening. Denies any fever, chills, trauma, pet contact, skin boils, sick contacts. Denies any other symptoms. She spiked a fever of 38.3 on Wednesday night after admission. Had 4 loose BMs. Endorses pain while walking on right leg, rates it 7/10. Denies any leg pain at rest. Blood Cx were sent. Pt had been on IV Vanc. Review of Systems All systems PM: reviewed and no additional remarkable complaints except as stat ed Constitutional: as per HPI Past History Past medical history: Hx of MRSA infection of right hand in 2019 Cdiff infection in 2013 Asthma: on PO Prednisone taper since 08/18 Past family history: no sick contacts except grandson who had cold Past social history: lives in [place], [place] smokes marijuana and drinks wine. Medications and Allergies Home Medications Medication Instructions Recorded Confirmed Type albuterol sulfate 2.5 mg/0.5 mL 2.5 mg INHALATION Q20M 08/18/19 08/25/19 History solution for nebulization albuterol sulfate 90 mcg/actuation 2 puff INHALATION Q6H PRN 08/18/19 08/25/19 History aerosol inhaler azithromycin 250 mg tablet See Rx Instructions PO .COMPLEX #6 08/18/19 08/25/19 Rx tab compressor, for nebulizer See Rx Instructions .ROUTE 08/18/19 08/25/19 History .MEDSUPPLY #1 each conj estrog-medroxyprogest evelina PO QDAY 08/18/19 08/18/19 History fluticasone 500 mcg-salmeterol 50 1 inh INHALATION BID 08/18/19 08/25/19 History mcg/dose blistr powdr for inhalation montelukast 10 mg tablet 10 mg PO QDAY 08/18/19 08/25/19 History prednisone 20 mg tablet See Rx Instructions PO QDAY #27 tab 08/18/19 08/25/19 Rx Allergies Allergy/AdvReac Type Severity Reaction Status Date / Time Sulfa (Sulfonamide Allergy Intermediate RASH Verified 08/25/19 09:51 Antibiotics) [SULFA(SULFONAMIDE ANTIBIOTICS)] Physical Examination Vital signs: Temp Pulse Resp BP Pulse Ox 37.4 C H 97 H 16 126/74 97 08/26/19 16:01 08/26/19 10:38 08/26/19 16:01 08/26/19 16:01 08/26/19 16:01 General appearance: no acute distress Eyes pulmonary: nonicteric ENT: oropharynx moist, other (no thrush) Auscultation: bilateral: clear (occasional crackles at bases) Cardiovascular: other (s1 s2 normal, no m/r/g) Gastrointestinal: normoactive bowel sounds, other (mild discomfort in left side of abdomen, no rebound or guarding) Integumentary: other (has multiple areas of scaly plaques, with whitish scales, and some erythema on right foot (dorsum), elbow, palms) Extremities: other (has redness over right thigh, right upper leg. Warm and tender to touch. no pus drainage, no open wounds, no blisters, no dark discoloration. ) Gait: other (no tenderness with movemment of right knee joint. No knee joint swelling, warmth, redness.) Results - Laboratory Findings CBC and BMP: 08/27/19 05:05 08/27/19 05:20 Abnormal lab findings: Abnormal Labs 08/25/19 08/25/19 08/25/19 10:10 10:38 10:38 WBC 32.1 H* Hct Gran % 94.2 H Lymph % (Auto) 2.9 L Gran # 30.29 H Lymph # (Auto) 0.93 L Seg Neutrophils % Band Neutrophils % Lymphocytes % Myelocytes % WBC Morphology Dohle Bodies RBC Morphology RBC Fragments POC Sodium 132 L Sodium 129 L Chloride 90 L Carbon Dioxide 21 L Anion Gap 18.0 H Glucose POC Glucose 115 H Calcium POC WB Ioniz Calcium 0.99 L NT-Pro-B Natriuret Pep Total Protein Albumin Albumin/Globulin Ratio Urine Protein Urine Ketones Urine RBC Urine WBC Ur Squamous Epith Cells Urine Bacteria Hyaline Casts Urine Mucus Synovial Neutrophils 08/25/19 08/25/19 08/26/19 14:19 15:47 05:15 WBC 33.3 H* Hct 33.8 L Gran % Lymph % (Auto) Gran # Lymph # (Auto) Seg Neutrophils % 34 L Band Neutrophils % 61 H Lymphocytes % 1 L Myelocytes % 1 H WBC Morphology Abnorm A Dohle Bodies 1+ A RBC Morphology Abnorm A RBC Fragments Rare A POC Sodium Sodium Chloride Carbon Dioxide Anion Gap Glucose POC Glucose Calcium POC WB Ioniz Calcium NT-Pro-B Natriuret Pep Total Protein Albumin Albumin/Globulin Ratio Urine Protein 100 A Urine Ketones 5/tr A Urine RBC 3 H Urine WBC 9 H Ur Squamous Epith Cells 9 H Urine Bacteria Few A Hyaline Casts 8 H Urine Mucus Many A Synovial Neutrophils 80 H 08/26/19 08/26/19 05:15 05:15 WBC Hct Gran % Lymph % (Auto) Gran # Lymph # (Auto) Seg Neutrophils % Band Neutrophils % Lymphocytes % Myelocytes % WBC Morphology Dohle Bodies RBC Morphology RBC Fragments POC Sodium Sodium Chloride Carbon Dioxide 18 L Anion Gap Glucose 64 L POC Glucose Calcium 7.4 L POC WB Ioniz Calcium NT-Pro-B Natriuret Pep 2840.0 H Total Protein 5.7 L Albumin 2.7 L Albumin/Globulin Ratio 0.9 L Urine Protein Urine Ketones Urine RBC Urine WBC Ur Squamous Epith Cells Urine Bacteria Hyaline Casts Urine Mucus Synovial Neutrophils Microbiology: Microbiology 08/26/19 13:42 Stool C. difficile GDH Antigen & Toxins - Final 08/25/19 12:19 Blood Blood Culture - Preliminary 08/25/19 12:26 Blood Blood Culture - Preliminary 08/25/19 15:47 Aspirate - Knee Gram Stain - Final 08/25/19 15:47 Aspirate - Knee Body Fluid Culture - Preliminary 08/25/19 21:00 Nose - First MRSA (PCR) - Final Assessment and Plan - Narrative A/P Narrative: A: 1. 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 Could be site of entry for bacteria - likely etiology would be Strept pyogenes, Gp B Strept , Gp C/G Strept, Staph aureus - slightly receding beyond marked borders compared to yesterday - commonly clinical features of cellulitis worsen initially before improving while on antibiotic therapy - MRSA nasal PCR negative. Rt knee aspirate not suggestive of septic arthritis 2. Diarrhea: - sec to antibiotics - Cdiff stool test neg Recommendations: - Continue IV vanc per pharmacy assisted dosing. Check trough before the 4th dose (target 10-20) - Start IV Cefepime 2 gm q8 hrs - agree with stopping PO vanc - will deescalate to PO options, once clinically improving and WBC downtrending - await blood Cx - TTE done per primary team pending - leg elevation will follow Daniel Mckeon MD Infectious diseases
[2019-08-26] MEDS: CEFEPIME 2 GM VIAL IV SCH (22:50)
[2019-08-27] MEDS: traMADol 50 MG TABLET PO PRN ×3 (01:25→15:22)
[2019-08-27] MEDS: 0.9 % SODIUM CHLORIDE 1,000 ML IV SCH ×3 (01:26→20:23)
[2019-08-27] MEDS: CEFEPIME 2 GM VIAL IV SCH ×3 (05:43→22:52)
[2019-08-27] MEDS: 0.9 % SODIUM CHLORIDE 10 ML SYRINGE IV SCH ×3 (05:43→20:23)
[2019-08-27 06:21] LABS: Hemoglobin 9.1 g/dL (11.2-15.7); Mean Cell Volume 89.1 fL (80.0-100.0); Mean Corpuscular HGB Conc 33.7 g/dL (31.0-36.0); Mean Platelet Volume 9.6 fL (7.4-10.4); Platelet Count 285 K/mcL (140-440); RBC 3.03 M/mcL (3.59-5.38); WBC 26.4 K/mcL (4.50-11.00)
[2019-08-27 06:31] LABS: ALT/SGPT 13 U/l (0-40); AST/SGOT 11 U/l (0-37); Albumin 2.5 gm/dL (3.2-5.2); Albumin/Globulin Ratio 0.8 (1.0-2.3); Alkaline Phosphatase 133 U/L (39-117); Bilirubin,Total 0.4 mg/dL (0.0-1.0); Blood Urea Nitrogen 11 mg/dl (8-23); Calcium 7.6 mg/dl (8.6-10.4); Carbon Dioxide 21 mmol/L (22-30); Chloride 101 mmol/L (96-108); Glomerular Filtration Rate 98; Glucose 89 mg/dL (70-105)
[2019-08-27] MEDS: ACETAMINOPHEN 325 MG TABLET PO PRN ×2 (06:49→15:22)
--- NOTE | 2019-08-27 07:32 | Orthopedic Progress Note ---
Subjective Patient information: Note initiated : 08/27/19 at 7:30 am Service Date, if different from initiated Date: [] Patient: Yoselin Escobedo 63 y/o F admitted on 08/25/19 for Right Leg Pain, Nausea. Chief Complaint: [] Interval history: improving cellulitis with antibiotics Objective Vital signs: Vital Signs Temp Pulse Resp BP Pulse Ox 08/27/19 04:01 99.4 F H 100 H 16 108/59 95 08/27/19 03:01 87 105/59 98 08/27/19 01:36 98.1 F 16 08/27/19 01:09 92 H 96 08/27/19 00:58 81 104/58 96 08/26/19 23:05 98.3 F 85 20 102/55 97 08/26/19 18:01 100 H 118/65 96 08/26/19 16:01 99.4 F H 16 126/74 97 08/26/19 14:01 18 90/55 94 08/26/19 14:00 18 97 08/26/19 12:01 16 101/66 95 08/26/19 10:38 97 H 15 08/26/19 10:01 17 102/55 96 08/26/19 08:11 100.9 F H 17 103/61 97 08/26/19 08:00 17 97 Intake and Output 08/26/19 08/27/19 08/27/19 20:59 05:59 13:59 Intake Total Output Total 250 Balance -250 Intake: IV Sodium Chloride 0.9% 1,000 ml @ 75 mls/hr IV .[id number] [facility] Rx#: [id number] Oral Output: Void Amount 250 Urine/Stool Mix Other: Urine Appearance Urine Color Urine Odor Stool Size Smear Stool Color Green Stool Consistency Soft Formed # Voids # Bowel Movements Weight Intake & Output: Intake & Output 08/26/19 08/27/19 08/27/19 20:59 05:59 13:59 Intake Total Output Total 250 Balance -250 Weight Intake: IV Sodium Chloride 0.9% 1,000 ml @ 75 mls/hr IV .[id number] [facility] Rx#: [id number] Oral Output: Void Amount 250 Urine/Stool Mix Other: Urine Appearance Urine Color Urine Odor Stool Size Smear Stool Color Green Stool Consistency Soft Formed # Voids # Bowel Movements Weight bearing status: full Neurological exam IM: Yes abnormal gait, Yes alert, Yes oriented X3, Yes motor sensory intact, Yes neurovascular intact Extremities exam IM: No calf tenderness, Yes full ROM, Yes Foot pink and warm, Yes neurovascular intact - Labs CBC & BMP: 08/27/19 05:05 08/27/19 05:20 Labs: 08/27/19 08/26/19 08/25/19 05:05 05:15 10:10 Hgb 9.1 L 11.2 12.8 Hct 27.0 L 33.8 L 37.8 Assessment and Plan (1) Cellulitis of knee, right assessment: right leg cellulitis, no evidence of septic arthritis, low neutrophil count and neg cultures per aspiration Plan: continue cellulitis per infectious disease. Will sign off but please call if problems, questions, or worsening condition Status: Acute
[2019-08-27] MEDS: PANTOPRAZOLE 40 MG TABLET PO SCH (07:44)
[2019-08-27 08:19] LABS: Band Neutrophils % 17 % (0-10); Dohle Bodies FEW (NONE SEEN); Lymphocytes % 5 % (15-49); Monocytes % (Manual) 1 % (1-12); Platelet Estimate NORMAL (NORMAL); RBC Fragments RARE (NONE SEEN); RBC Morphology ABNORM (NORMAL); Segmented Neutrophils % 77 % (38-78)
[2019-08-27] MEDS ORDERED: VANCOMYCIN 1,000 MG in 0.9 % SODIUM CHLORIDE 250 ML IV SCH (09:00)
[2019-08-27] MEDS ORDERED: PNEUMOCOCCAL 23-VAL P-SAC VAC 0.5 ML SYRINGE IM ONE (10:00)
[2019-08-27] MEDS: DOCUSATE SODIUM 100 MG CAPSULE PO SCH ×2 (10:50→20:23)
[2019-08-27] MEDS: MONTELUKAST 10 MG TABLET PO SCH (10:55)
[2019-08-27] MEDS: FLUTICASONE/SALMETEROL 500/50 INHALER #14 INH SCH ×2 (10:55→20:22)
[2019-08-27] MEDS: ENOXAPARIN 40 MG/0.4 ML SYRINGE SQ SCH (10:56)
--- NOTE | 2019-08-27 14:56 | Internal Med Progress Note ---
Medical - PN: Subj Patient information: Note initiated : 08/27/19 at 2:51 pm Service Date, if different from initiated Date: [] Patient: Yoselin Escobedo 63 y/o F admitted on 08/25/19 for Right Leg Pain, Nausea. Chief Complaint: [] Interval history 08/25 Patient feels better. No nausea. She had only 1 bowel movement this morning. She still has right knee pain. Patient still has low grade fever, 100.9 White blood cells 43 today, it was 32 yesterday 08/26 She seems to feel better. But her redness over right leg continues to extend N/V/D improved ROS Constitutional: Present: as per HPI Ears: as per HPI Nose, mouth and throat: Present: as per HPI Cardiovascular: as per HPI. Absent: chest pain Respiratory: as per HPI. Absent: cough, dyspnea, hemoptysis Gastrointestinal: as per HPI, abdominal pain, diarrhea, nausea, vomiting Musculoskeletal: arthralgias Neurological: as per HPI Psychiatric: as per HPI Endocrine: as per HPI Hematologic/Lymphatic: as per HPI - Constitutional Vitals: Vital Signs Temp Pulse Resp BP Pulse Ox 99.3 F H 90 16 120/68 99 08/27/19 12:01 08/27/19 12:57 08/27/19 12:00 08/27/19 12:57 08/27/19 12:57 Period Temp Pulse Resp BP Sys/Werner Pulse Ox Last 24 Hr 98.1 F-99.4 F 81-100 15-20 90-126/40-74 94-99 Intake and Output 08/27/19 08/27/19 08/27/19 05:59 13:59 21:59 Intake Total Output Total 250 Balance -250 Weight 55.973 kg Patient Weight 08/28/19 05:59 Weight 55.973 kg Intake & Output: Intake & Output 08/27/19 08/27/19 08/27/19 05:59 13:59 21:59 Intake Total Output Total 250 Balance -250 Weight 55.973 kg Intake: IV Sodium Chloride 0.9% 1,000 ml @ 75 mls/hr IV .[id number] [facility] Rx#: [id number] Oral Output: Void Amount 250 Other: Urine Appearance Urine Color Stool Size Smear Stool Color Green Stool Consistency Soft Formed - Additional findings Additional findings: General appearance: cooperative, no acute distress Head exam: atraumatic, normal inspection, normocephalic Eye exam: EOMI, PERRL Sclera: bilateral: normal inspection ENT exam: mucous membranes moist Neck exam: full ROM Neck exam: no tenderness Respiratory exam: normal respiratory exam. Absent: rales, rhonchi, wheezes Cardiovascular exam: normal rate and rhythm, +S1, +S2 GI/Abdominal exam: normal bowel sounds, soft, tenderness (very mild tenderness over epigastric area) Extremities exam: right leg tenderness, erythema (continue to extend to low leg and thigh) Neurological exam: alert, CN II-XII intact, oriented X3, reflexes normal Psychiatric exam: flat affect, normal mood Skin exam: intact Medical - PN: Obj Da - Labs CBC & Chem 7: 08/27/19 05:05 08/27/19 05:20 Labs: Abnormal Lab Results 08/27/19 08/27/19 08/26/19 05:20 05:05 05:15 WBC 26.4 H RBC 3.03 L Hgb 9.1 L Hct 27.0 L Gran % Lymph % (Auto) Gran # Lymph # (Auto) Seg Neutrophils % Band Neutrophils % 17 H Lymphocytes % 5 L Myelocytes % WBC Morphology Abnorm A Dohle Bodies Few A RBC Morphology Abnorm A RBC Fragments Rare A POC Sodium Sodium Chloride Carbon Dioxide 21 L 18 L Anion Gap Glucose 64 L POC Glucose Calcium 7.6 L 7.4 L POC WB Ioniz Calcium Alkaline Phosphatase 133 H NT-Pro-B Natriuret Pep Total Protein 5.5 L 5.7 L Albumin 2.5 L 2.7 L Albumin/Globulin Ratio 0.8 L 0.9 L Urine Protein Urine Ketones Urine RBC Urine WBC Ur Squamous Epith Cells Urine Bacteria Hyaline Casts Urine Mucus Synovial Neutrophils 08/26/19 08/26/19 08/25/19 05:15 05:15 15:47 WBC 33.3 H* RBC Hgb Hct 33.8 L Gran % Lymph % (Auto) Gran # Lymph # (Auto) Seg Neutrophils % 34 L Band Neutrophils % 61 H Lymphocytes % 1 L Myelocytes % 1 H WBC Morphology Abnorm A Dohle Bodies 1+ A RBC Morphology Abnorm A RBC Fragments Rare A POC Sodium Sodium Chloride Carbon Dioxide Anion Gap Glucose POC Glucose Calcium POC WB Ioniz Calcium Alkaline Phosphatase NT-Pro-B Natriuret Pep 2840.0 H Total Protein Albumin Albumin/Globulin Ratio Urine Protein Urine Ketones Urine RBC Urine WBC Ur Squamous Epith Cells Urine Bacteria Hyaline Casts Urine Mucus Synovial Neutrophils 80 H 08/25/19 08/25/19 08/25/19 14:19 10:38 10:38 WBC RBC Hgb Hct Gran % Lymph % (Auto) Gran # Lymph # (Auto) Seg Neutrophils % Band Neutrophils % Lymphocytes % Myelocytes % WBC Morphology Dohle Bodies RBC Morphology RBC Fragments POC Sodium 132 L Sodium 129 L Chloride 90 L Carbon Dioxide 21 L Anion Gap 18.0 H Glucose POC Glucose 115 H Calcium POC WB Ioniz Calcium 0.99 L Alkaline Phosphatase NT-Pro-B Natriuret Pep Total Protein Albumin Albumin/Globulin Ratio Urine Protein 100 A Urine Ketones 5/tr A Urine RBC 3 H Urine WBC 9 H Ur Squamous Epith Cells 9 H Urine Bacteria Few A Hyaline Casts 8 H Urine Mucus Many A Synovial Neutrophils 08/25/19 10:10 WBC 32.1 H* RBC Hgb Hct Gran % 94.2 H Lymph % (Auto) 2.9 L Gran # 30.29 H Lymph # (Auto) 0.93 L Seg Neutrophils % Band Neutrophils % Lymphocytes % Myelocytes % WBC Morphology Dohle Bodies RBC Morphology RBC Fragments POC Sodium Sodium Chloride Carbon Dioxide Anion Gap Glucose POC Glucose Calcium POC WB Ioniz Calcium Alkaline Phosphatase NT-Pro-B Natriuret Pep Total Protein Albumin Albumin/Globulin Ratio Urine Protein Urine Ketones Urine RBC Urine WBC Ur Squamous Epith Cells Urine Bacteria Hyaline Casts Urine Mucus Synovial Neutrophils Meds: Medications Acetaminophen (Tylenol) 650 mg PO Q6HP PRN; Protocol PRN Reason: Per Pain Protocol/Fever > 101 Last Admin: 08/27/19 06:49 Dose: 650 mg Documented by: Albuterol Sulfate (Ventolin) 2 puff INH Q6HP PRN PRN Reason: Shortness Of Breath Albuterol/Ipratropium (Duoneb) 3 ml NEB Q6HRT PRN PRN Reason: Shortness Of Breath Cefepime HCl (Maxipime) 2 gm IV Q8H [facility]; Protocol Last Admin: 08/27/19 05:43 Dose: 2 gm Documented by: Docusate Sodium (Colace) 100 mg PO BID [facility] Last Admin: 08/27/19 10:50 Dose: Not Given Documented by: Enoxaparin Sodium (Lovenox) 40 mg SQ DAILY [facility] Last Admin: 08/27/19 10:56 Dose: 40 mg Documented by: Sodium Chloride (Sodium Chloride 0.9%) 1,000 mls @ 75 mls/hr IV .[id number] [facility] Last Admin: 08/27/19 01:26 Dose: 75 mls/hr Documented by: Vancomycin HCl 1,000 mg/ (Sodium Chloride) 250 mls @ 250 mls/hr IV Q12H [facility]; Protocol Last Admin: 08/27/19 10:55 Dose: 250 mls/hr Documented by: Montelukast Sodium (Singular) 10 mg PO QDAY [facility] Last Admin: 08/27/19 10:55 Dose: 10 mg Documented by: Morphine Sulfate (Morphine) 2 mg IV Q2HP PRN PRN Reason: Severe Pain Last Admin: 08/26/19 18:25 Dose: 2 mg Documented by: Naloxone HCl (Narcan) 0.1 mg IV Q2MIN PRN PRN Reason: Opiate Reversal Ondansetron HCl (Zofran) 4 mg IV Q4HP PRN; Protocol PRN Reason: Nausea And Vomiting Pantoprazole Sodium (Protonix) 40 mg PO QAMAC [facility] Last Admin: 08/27/19 07:44 Dose: 40 mg Documented by: Fluticasone/Salmeterol (Advair 500-50 Diskus) 1 puff INH BID [facility] Last Admin: 08/27/19 10:55 Dose: 1 puff Documented by: Senna (Senokot) 2 tab PO HSP PRN PRN Reason: Constipation Sodium Chloride (Saline Flush) 10 ml IV Q8 [facility] Last Admin: 08/27/19 05:43 Dose: Not Given Documented by: Tramadol HCl (Ultram) 50 mg PO Q6HP PRN PRN Reason: Pain Last Admin: 08/27/19 07:43 Dose: 50 mg Documented by: Vancomycin HCl (Vancomycin Per Pharmacy) 1 order IV UD [facility] Medical - PN: A/P - Time Spent With Patient Total time spent is greater than 50% in coordination of care (as documented) at patient's floor/unit and/or counseling patient: - Narrative A/P Narrative: Assessment: 1. Sepsis 2nd to cellulitis of right knee 2. Acute cellulitis of the right knee popliteal fossa 3. Asthma 4. Acute gastroenteritis 5. Mild ileus 6. Hemangioma, right lobe of the liver Plan: 1. Blood and right knee aspiration culture - no growth Lactic acid 1.2 IV fluid resuscitation Lactic acid normal 2. MRI right knee showed Severe cellulitis along the posterior aspect of the knee standing into the distal thigh. irrigation and drainage of the right knee arthroscopically was done by orthopedics team on 08/24 erythematic area continue to extend WBC went down to 27 As per orth, no evidence of septic arthritis ID consulted, as per Dr. Mckeon, continue cefepime and vanco Pending culture 3. asthma stable, continue home meds 4. N/V/D improved C diff negative on regular diet repeat electrolytes in am 5. Liver hemangioma could be caused by hormonal therapy. Stable. Follow with the PCP 6. DVT prophylaxis: Lovenox 7. CODE STATUS: Full Medical - PN: Qual - VTE Deep Vein Thrombosis/Pulmonary Embolism Present on Admission: No
[2019-08-27] MEDS ORDERED: IPRATROPIUM/ALBUTEROL 3 ML AMPUL.NEB NEB PRN (17:04)
[2019-08-27] MEDS ORDERED: VANCOMYCIN PER PHARMACY IV SCH (17:04)
[2019-08-27] MEDS ORDERED: ALBUTEROL SULFATE 1 PUFF INHALER INH PRN (17:04)
[2019-08-27] MEDS ORDERED: SENNOSIDES 1 TABLET PO PRN (17:04)
[2019-08-27] MEDS ORDERED: NALOXONE HCL 0.4 MG/ML VIAL IV PRN (17:04)
[2019-08-27] MEDS: VANCOMYCIN 1,000 MG in 0.9 % SODIUM CHLORIDE 250 ML IV SCH (20:23)
[2019-08-28] MEDS: ACETAMINOPHEN 325 MG TABLET PO PRN ×3 (02:05→15:55)
[2019-08-28] MEDS: 0.9 % SODIUM CHLORIDE 10 ML SYRINGE IV SCH ×3 (05:37→20:11)
[2019-08-28 06:05] LABS: Hematocrit 26.7 % (34.1-44.9); Hemoglobin 9.1 g/dL (11.2-15.7); Mean Cell Volume 88.1 fL (80.0-100.0); Mean Corpuscular HGB Conc 34.1 g/dL (31.0-36.0); Platelet Count 280 K/mcL (140-440); RBC 3.03 M/mcL (3.59-5.38); Red Cell Distribution Width 12.9 % (11.5-14.5); WBC 23.1 K/mcL (4.50-11.00)
[2019-08-28 06:16] LABS: ALT/SGPT 34 U/l (0-40); AST/SGOT 40 U/l (0-37); Albumin 2.4 gm/dL (3.2-5.2); Albumin/Globulin Ratio 0.7 (1.0-2.3); Alkaline Phosphatase 140 U/L (39-117); Bilirubin,Total 0.6 mg/dL (0.0-1.0); Blood Urea Nitrogen 9 mg/dl (8-23); Carbon Dioxide 23 mmol/L (22-30); Chloride 104 mmol/L (96-108); Globulin 3.4 gm/dL (2.2-3.7); Glomerular Filtration Rate 104; Glucose 96 mg/dL (70-105)
[2019-08-28] MEDS: VANCOMYCIN 1,000 MG in 0.9 % SODIUM CHLORIDE 250 ML IV SCH ×3 (07:01→20:00)
[2019-08-28] MEDS: CEFEPIME 2 GM VIAL IV SCH ×3 (07:49→22:39)
[2019-08-28] MEDS: 0.9 % SODIUM CHLORIDE 1,000 ML IV SCH (07:49)
[2019-08-28] MEDS: PANTOPRAZOLE 40 MG TABLET PO SCH (07:50)
[2019-08-28 08:02] LABS: Band Neutrophils % 9 % (0-10); Eosinophils % (Manual) 2 % (0-7); Lymphocytes % 4 % (15-49); Monocytes % (Manual) 2 % (1-12); Myelocytes % 1 % (0-0); Platelet Estimate NORMAL (NORMAL); RBC Morphology NORMAL (NORMAL); Segmented Neutrophils % 82 % (38-78)
[2019-08-28] MEDS: POTASSIUM CHLORIDE 20 MEQ TABLET PO SCH ×7 (08:50→20:00)
[2019-08-28] MEDS: ENOXAPARIN 40 MG/0.4 ML SYRINGE SQ SCH (08:50)
[2019-08-28] MEDS: MONTELUKAST 10 MG TABLET PO SCH (08:50)
[2019-08-28] MEDS: DOCUSATE SODIUM 100 MG CAPSULE PO SCH ×2 (09:08→20:03)
[2019-08-28] MEDS: FLUTICASONE/SALMETEROL 500/50 INHALER #14 INH SCH ×2 (09:46→20:10)
[2019-08-28] MEDS ORDERED: HYDROmorphone 2 MG/ML VIAL IV PRN (09:51)
[2019-08-28 10:16] LABS: Hematocrit 29.2 % (34.1-44.9); Hemoglobin 9.9 g/dL (11.2-15.7); Mean Cell Volume 87.4 fL (80.0-100.0); Mean Corpuscular HGB Conc 33.9 g/dL (31.0-36.0); Mean Platelet Volume 10.8 fL (7.4-10.4); Platelet Count 302 K/mcL (140-440); RBC 3.34 M/mcL (3.59-5.38); Red Cell Distribution Width 12.8 % (11.5-14.5); WBC 21.5 K/mcL (4.50-11.00)
[2019-08-28 10:19] LABS: ALT/SGPT 38 U/l (0-40); AST/SGOT 38 U/l (0-37); Albumin 3.1 gm/dL (3.2-5.2); Albumin/Globulin Ratio 0.9 (1.0-2.3); Alkaline Phosphatase 171 U/L (39-117); Bilirubin,Total 0.7 mg/dL (0.0-1.0); Blood Urea Nitrogen 8 mg/dl (8-23); Calcium 8.2 mg/dl (8.6-10.4); Carbon Dioxide 21 mmol/L (22-30); Chloride 103 mmol/L (96-108); Globulin 3.3 gm/dL (2.2-3.7); Glomerular Filtration Rate 104; Glucose 88 mg/dL (70-105)
[2019-08-28 10:21] LABS: Band Neutrophils % 8 % (0-10); Lymphocytes % 5 % (15-49); Monocytes % (Manual) 1 % (1-12); Platelet Estimate NORMAL (NORMAL); RBC Morphology NORMAL (NORMAL); Segmented Neutrophils % 86 % (38-78)
[2019-08-28] MEDS ORDERED: POTASSIUM CHLORIDE 20 MEQ in DEXTROSE 5% IN WATER 250 ML IV ONE (10:24)
--- NOTE | 2019-08-28 16:06 | Infectious Disease Prog Note ---
Subjective Patient information: Note initiated : 08/28/19 at 4:04 pm Service Date, if different from initiated Date: [] Patient: Yoselin Escobedo 63 y/o F admitted on 08/25/19 for Right Leg Pain, Nausea. Chief Complaint: [] Interval history: Pt doing better, although still has some thigh pain and redness. BMs are soft, mushy, not watery. No fever. Eating well. Objective Objective Narrative: ao x 3, in nad no thrush right leg: the redness continues to recede. The swelling has gone down. The redness is still there and most prominent in proximal thigh. tender to touch. No blisters. Distal foot is fine without any discoloration - Vital Signs Vital signs: Vital Signs Temp Pulse Pulse Resp BP BP Pulse Ox 08/28/19 15:48 94 H 18 152/82 95 08/28/19 11:47 37.1 C 77 18 144/70 99 08/28/19 08:21 36.6 C 08/28/19 07:57 18 137/70 99 08/28/19 04:15 36.7 C 77 16 114/64 99 08/28/19 00:01 36.7 C 88 16 130/70 94 08/27/19 22:00 86 121/59 98 08/27/19 20:30 24 H 08/27/19 20:00 36.1 C 81 24 H 132/70 94 08/27/19 18:22 81 143/79 100 08/27/19 18:01 84 148/75 99 Intake and Output 08/28/19 08/28/19 08/28/19 05:59 13:59 21:59 Intake Total 450 Output Total 1300 200 400 Balance -850 -200 -400 Intake: IV 250 Vancomycin 1,000 mg In Sodium 250 Chloride 0.9% 250 ml @ 250 mls/ hr IV Q12H [facility] Rx#:[id number] Oral 200 Output: Void Amount 1000 200 400 Urine/Stool Mix 300 Other: Meal Breakfast Percent of Meal Consumed 100% Feeding Ability Independent Urine Appearance Clear Urine Color Bright Yellow Stool Size Small Small Stool Color Brown Brown Green Stool Consistency Soft Loose Formed # Voids 2 # Bowel Movements 2 Intake & Output: Intake & Output 08/28/19 08/28/19 08/28/19 05:59 13:59 21:59 Intake Total 450 Output Total 1300 200 400 Balance -850 -200 -400 Intake: IV 250 Vancomycin 1,000 mg In Sodium 250 Chloride 0.9% 250 ml @ 250 mls/ hr IV Q12H [facility] Rx#:[id number] Oral 200 Output: Void Amount 1000 200 400 Urine/Stool Mix 300 Other: Meal Breakfast Percent of Meal Consumed 100% Feeding Ability Independent Urine Appearance Clear Urine Color Bright Yellow Stool Size Small Small Stool Color Brown Brown Green Stool Consistency Soft Loose Formed # Voids 2 # Bowel Movements 2 - Lab 08/29/19 04:32 08/29/19 18:45 Most recent lab results Calcium 8.0 mg/dl (8.6-10.4) L 08/28/19 05:05 Calcium 8.2 mg/dl (8.6-10.4) L 08/28/19 05:05 Magnesium 1.8 mg/dL (1.6-2.5) 08/28/19 08:20 Microbiology 08/25/19 12:19 Blood Blood Culture - Preliminary 08/25/19 12:26 Blood Blood Culture - Preliminary 08/25/19 15:47 Aspirate - Knee Gram Stain - Final 08/25/19 15:47 Aspirate - Knee Body Fluid Culture - Final 08/26/19 13:42 Stool C. difficile GDH Antigen & Toxins - Final 08/25/19 21:00 Nose - First MRSA (PCR) - Final Medications Active Medications: Acetaminophen (Tylenol) 650 mg PO Q6HP PRN; Protocol PRN Reason: Per Pain Protocol/Fever > 101 Last Admin: 08/28/19 15:55 Dose: 650 mg Documented by: [email or web address] Admin: 08/28/19 07:50 Dose: 650 mg Documented by: [email or web address] Admin: 08/28/19 02:05 Dose: 650 mg Documented by: [email or web address] Albuterol Sulfate (Ventolin) 2 puff INH Q6HP PRN PRN Reason: Shortness Of Breath Albuterol/Ipratropium (Duoneb) 3 ml NEB Q6HRT PRN PRN Reason: Shortness Of Breath Cefepime HCl (Maxipime) 2 gm IV Q8H [facility]; Protocol Last Admin: 08/28/19 15:42 Dose: 2 gm Documented by: [email or web address] Admin: 08/28/19 07:49 Dose: 2 gm Documented by: [email or web address] Admin: 08/27/19 22:52 Dose: 2 gm Documented by: PHI Docusate Sodium (Colace) 100 mg PO BID [facility] Last Admin: 08/28/19 09:08 Dose: Not Given Documented by: MIRELLA Non-Admin Reason: Loose Stool Admin: 08/27/19 20:23 Dose: Not Given Documented by: PHI Non-Admin Reason: Loose Stool Enoxaparin Sodium (Lovenox) 40 mg SQ DAILY [facility] Last Admin: 08/28/19 08:50 Dose: 40 mg Documented by: MIRELLA Sodium Chloride (Sodium Chloride 0.9%) 1,000 mls @ 75 mls/hr IV .[id number] [facility] Last Admin: 08/28/19 07:49 Dose: 75 mls/hr Documented by: Admin: 08/27/19 20:23 Dose: Not Given Documented by: PHI Non-Admin Reason: Bag Still Infusing Vancomycin HCl 1,000 mg/ (Sodium Chloride) 250 mls @ 250 mls/hr IV Q12H [facility]; Protocol Last Admin: 08/28/19 11:10 Dose: 250 mls/hr Documented by: Infusion: 08/28/19 05:37 Dose: 0 mls/hr Documented by: Admin: 08/27/19 20:23 Dose: 250 mls/hr Documented by: PHI Montelukast Sodium (Singular) 10 mg PO QDAY [facility] Last Admin: 08/28/19 08:50 Dose: 10 mg Documented by: MIRELLA Morphine Sulfate (Morphine) 2 mg IV Q4HP PRN; Protocol PRN Reason: Per Pain Protocol Naloxone HCl (Narcan) 0.1 mg IV Q2MIN PRN PRN Reason: Opiate Reversal Ondansetron HCl (Zofran) 4 mg IV Q4HP PRN; Protocol PRN Reason: Nausea And Vomiting Pantoprazole Sodium (Protonix) 40 mg PO QAMAC [facility] Last Admin: 08/28/19 07:50 Dose: 40 mg Documented by: MIRELLA Potassium Chloride (Kdur) 20 meq PO Q2 [facility] Stop: 08/28/19 20:01 Last Admin: 08/28/19 15:42 Dose: 20 meq Documented by: Admin: 08/28/19 14:16 Dose: 20 meq Documented by: Admin: 08/28/19 12:21 Dose: 20 meq Documented by: [email or web address] Fluticasone/Salmeterol (Advair 500-50 Diskus) 1 puff INH BID [facility] Last Admin: 08/28/19 09:46 Dose: 1 puff Documented by: [id number] Admin: 08/27/19 20:22 Dose: 1 puff Documented by: PHI Senna (Senokot) 2 tab PO HSP PRN PRN Reason: Constipation Sodium Chloride (Saline Flush) 10 ml IV Q8 [facility] Last Admin: 08/28/19 14:05 Dose: Not Given Documented by: [email or web address] Non-Admin Reason: Continuous IV Admin: 08/28/19 05:37 Dose: Not Given Documented by: PHI Non-Admin Reason: Continuous IV Admin: 08/27/19 20:23 Dose: Not Given Documented by: [email or web address] Non-Admin Reason: Continuous IV Tramadol HCl (Ultram) 50 mg PO Q6HP PRN PRN Reason: Pain Vancomycin HCl (Vancomycin Per Pharmacy) 1 order IV UD [facility] Assessment and Plan - Narrative A/P Narrative: A: 1. 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 Could be site of entry for bacteria - likely etiology would be Strept pyogenes, Gp B Strept , Gp C/G Strept, Staph aureus - receding beyond marked borders compared to at admission - commonly clinical features of cellulitis worsen initially before improving while on antibiotic therapy - MRSA nasal PCR negative. Rt knee aspirate not suggestive of septic arthritis 2. Diarrhea: - sec to antibiotics - Cdiff stool test neg Recommendations: - Continue IV vanc per pharmacy assisted dosing. Check trough before the 4th dose (target 10-20) - Continue IV Cefepime 2 gm q8 hrs - will deescalate to PO options, once clinically improving and WBC downtrending further - leg elevation, ice packs to the affected area will follow Daniel Mckeon MD Infectious diseases
--- NOTE | 2019-08-28 16:19 | Internal Med Progress Note ---
Medical - PN: Subj Patient information: Note initiated : 08/28/19 at 4:13 pm Service Date, if different from initiated Date: [] Patient: Yoselin Escobedo 63 y/o F admitted on 08/25/19 for Right Leg Pain, Nausea. Chief Complaint: [] Interval history 08/25 Patient feels better. No nausea. She had only 1 bowel movement this morning. She still has right knee pain. Patient still has low grade fever, 100.9 White blood cells 43 today, it was 32 yesterday 08/26 She seems to feel better. But her redness over right leg continues to extend N/V/D improved 08/27 Patient states that she is feeling better. Afebrile white blood cells trending down As per ID Dr. Li, continue current antibiotics for 1-2 more days K 2.9 Magnesium 1.8 Echo report pending ROS Constitutional: No symptoms reported Ears: No symptoms reported Nose, mouth and throat: No symptoms reported Cardiovascular: No symptoms reported Respiratory: No symptoms reported Gastrointestinal: No symptoms reported Musculoskeletal: arthralgias, right leg pain Neurological: No symptoms reported Psychiatric: No symptoms reported Endocrine: No symptoms reported Hematologic/Lymphatic: No symptoms reported - Constitutional Vitals: Vital Signs Temp Pulse Resp BP Pulse Ox 98.8 F 94 H 18 152/82 95 08/28/19 11:47 08/28/19 15:48 08/28/19 15:48 08/28/19 15:48 08/28/19 15:48 Period Temp Pulse Resp BP Sys/Werner Pulse Ox Last 24 Hr 97.0 F-98.8 F 77-94 16-24 114-152/59-82 94-100 Intake and Output 08/28/19 08/28/19 08/28/19 05:59 13:59 21:59 Intake Total 450 Output Total 1300 200 400 Balance -850 -200 -400 Intake & Output: Intake & Output 08/28/19 08/28/19 08/28/19 05:59 13:59 21:59 Intake Total 450 Output Total 1300 200 400 Balance -850 -200 -400 Intake: IV 250 Vancomycin 1,000 mg In Sodium 250 Chloride 0.9% 250 ml @ 250 mls/ hr IV Q12H [facility] Rx#:[id number] Oral 200 Output: Void Amount 1000 200 400 Urine/Stool Mix 300 Other: Meal Breakfast Percent of Meal Consumed 100% Feeding Ability Independent Urine Appearance Clear Urine Color Bright Yellow Stool Size Small Small Stool Color Brown Brown Green Stool Consistency Soft Loose Formed # Voids 2 # Bowel Movements 2 - Additional findings Additional findings: General appearance: cooperative, no acute distress Head exam: atraumatic, normal inspection, normocephalic Eye exam: EOMI, PERRL Sclera: bilateral: normal inspection ENT exam: mucous membranes moist Neck exam: full ROM Neck exam: no tenderness Respiratory exam: normal respiratory exam. Absent: rales, rhonchi, wheezes Cardiovascular exam: normal rate and rhythm, +S1, +S2 GI/Abdominal exam: normal bowel sounds, soft, tenderness (very mild tenderness over epigastric area) Extremities exam: right leg tenderness, erythema (significantly improved) Neurological exam: alert, CN II-XII intact, oriented X3, reflexes normal Psychiatric exam: flat affect, normal mood Skin exam: intact Medical - PN: Obj Da - Labs CBC & Chem 7: 08/28/19 05:05 08/28/19 05:05 Labs: Abnormal Lab Results 08/28/19 08/28/19 08/28/19 05:05 05:05 05:05 WBC 21.5 H RBC 3.34 L Hgb 9.9 L Hct 29.2 L MPV 10.8 H Seg Neutrophils % 86 H Band Neutrophils % Lymphocytes % 5 L Myelocytes % WBC Morphology Dohle Bodies RBC Morphology RBC Fragments Sodium Potassium 2.9 L* 3.2 L Chloride Carbon Dioxide 21 L Anion Gap Creatinine 0.5 L 0.5 L Glucose Calcium 8.2 L 8.0 L AST 38 H 40 H Alkaline Phosphatase 171 H 140 H NT-Pro-B Natriuret Pep Total Protein 5.8 L Albumin 3.1 L 2.4 L Albumin/Globulin Ratio 0.9 L 0.7 L Urine Protein Urine Ketones Urine RBC Urine WBC Ur Squamous Epith Cells Urine Bacteria Hyaline Casts Urine Mucus Synovial Neutrophils 08/28/19 08/27/19 08/27/19 05:05 05:20 05:05 WBC 23.1 H 26.4 H RBC 3.03 L 3.03 L Hgb 9.1 L 9.1 L Hct 26.7 L 27.0 L MPV Seg Neutrophils % 82 H Band Neutrophils % 17 H Lymphocytes % 4 L 5 L Myelocytes % 1 H WBC Morphology Abnorm A Dohle Bodies Few A RBC Morphology Abnorm A RBC Fragments Rare A Sodium Potassium Chloride Carbon Dioxide 21 L Anion Gap Creatinine Glucose Calcium 7.6 L AST Alkaline Phosphatase 133 H NT-Pro-B Natriuret Pep Total Protein 5.5 L Albumin 2.5 L Albumin/Globulin Ratio 0.8 L Urine Protein Urine Ketones Urine RBC Urine WBC Ur Squamous Epith Cells Urine Bacteria Hyaline Casts Urine Mucus Synovial Neutrophils 08/26/19 08/26/19 08/26/19 05:15 05:15 05:15 WBC 33.3 H* RBC Hgb Hct 33.8 L MPV Seg Neutrophils % 34 L Band Neutrophils % 61 H Lymphocytes % 1 L Myelocytes % 1 H WBC Morphology Abnorm A Dohle Bodies 1+ A RBC Morphology Abnorm A RBC Fragments Rare A Sodium Potassium Chloride Carbon Dioxide 18 L Anion Gap Creatinine Glucose 64 L Calcium 7.4 L AST Alkaline Phosphatase NT-Pro-B Natriuret Pep 2840.0 H Total Protein 5.7 L Albumin 2.7 L Albumin/Globulin Ratio 0.9 L Urine Protein Urine Ketones Urine RBC Urine WBC Ur Squamous Epith Cells Urine Bacteria Hyaline Casts Urine Mucus Synovial Neutrophils 08/25/19 08/25/19 08/25/19 15:47 14:19 10:38 WBC RBC Hgb Hct MPV Seg Neutrophils % Band Neutrophils % Lymphocytes % Myelocytes % WBC Morphology Dohle Bodies RBC Morphology RBC Fragments Sodium 129 L Potassium Chloride 90 L Carbon Dioxide 21 L Anion Gap 18.0 H Creatinine Glucose Calcium AST Alkaline Phosphatase NT-Pro-B Natriuret Pep Total Protein Albumin Albumin/Globulin Ratio Urine Protein 100 A Urine Ketones 5/tr A Urine RBC 3 H Urine WBC 9 H Ur Squamous Epith Cells 9 H Urine Bacteria Few A Hyaline Casts 8 H Urine Mucus Many A Synovial Neutrophils 80 H Meds: Medications Acetaminophen (Tylenol) 650 mg PO Q6HP PRN; Protocol PRN Reason: Per Pain Protocol/Fever > 101 Last Admin: 08/28/19 15:55 Dose: 650 mg Documented by: Albuterol Sulfate (Ventolin) 2 puff INH Q6HP PRN PRN Reason: Shortness Of Breath Albuterol/Ipratropium (Duoneb) 3 ml NEB Q6HRT PRN PRN Reason: Shortness Of Breath Cefepime HCl (Maxipime) 2 gm IV Q8H [facility]; Protocol Last Admin: 08/28/19 15:42 Dose: 2 gm Documented by: Docusate Sodium (Colace) 100 mg PO BID [facility] Last Admin: 08/28/19 09:08 Dose: Not Given Documented by: Enoxaparin Sodium (Lovenox) 40 mg SQ DAILY [facility] Last Admin: 08/28/19 08:50 Dose: 40 mg Documented by: Sodium Chloride (Sodium Chloride 0.9%) 1,000 mls @ 75 mls/hr IV .[id number] [facility] Last Admin: 08/28/19 07:49 Dose: 75 mls/hr Documented by: Vancomycin HCl 1,000 mg/ (Sodium Chloride) 250 mls @ 250 mls/hr IV Q12H [facility]; Protocol Last Admin: 08/28/19 11:10 Dose: 250 mls/hr Documented by: Montelukast Sodium (Singular) 10 mg PO QDAY [facility] Last Admin: 08/28/19 08:50 Dose: 10 mg Documented by: Morphine Sulfate (Morphine) 2 mg IV Q4HP PRN; Protocol PRN Reason: Per Pain Protocol Naloxone HCl (Narcan) 0.1 mg IV Q2MIN PRN PRN Reason: Opiate Reversal Ondansetron HCl (Zofran) 4 mg IV Q4HP PRN; Protocol PRN Reason: Nausea And Vomiting Pantoprazole Sodium (Protonix) 40 mg PO QAMAC [facility] Last Admin: 08/28/19 07:50 Dose: 40 mg Documented by: Potassium Chloride (Kdur) 20 meq PO Q2 [facility] Stop: 08/28/19 20:01 Last Admin: 08/28/19 15:42 Dose: 20 meq Documented by: Fluticasone/Salmeterol (Advair 500-50 Diskus) 1 puff INH BID [facility] Last Admin: 08/28/19 09:46 Dose: 1 puff Documented by: Senna (Senokot) 2 tab PO HSP PRN PRN Reason: Constipation Sodium Chloride (Saline Flush) 10 ml IV Q8 [facility] Last Admin: 08/28/19 14:05 Dose: Not Given Documented by: Tramadol HCl (Ultram) 50 mg PO Q6HP PRN PRN Reason: Pain Vancomycin HCl (Vancomycin Per Pharmacy) 1 order IV UD [facility] Medical - PN: A/P - Time Spent With Patient Total time spent is greater than 50% in coordination of care (as documented) at patient's floor/unit and/or counseling patient: - Narrative A/P Narrative: Assessment: 1. Sepsis 2nd to cellulitis of right knee 2. Acute cellulitis of the right knee popliteal fossa 3. Asthma 4. Acute gastroenteritis 5. Mild ileus 6. Hemangioma, right lobe of the liver 7. Electrolytes derangement Plan: 1. Blood and right knee aspiration culture - no growth Lactic acid 1.2 IV fluid resuscitation Lactic acid normal 2. MRI right knee showed Severe cellulitis along the posterior aspect of the knee standing into the distal thigh. irrigation and drainage of the right knee arthroscopically was done by orthopedics team on 08/24 erythematic area significantly improved WBC trending down As per luzma, no evidence of septic arthritis ID consulted, as per Dr. Mckeon, continue cefepime and vanco for 1-2 more days Pending culture 3. asthma stable, continue home meds 4. N/V/D improved C diff negative on regular diet Electrolytes are repleted, repeat electrolytes in am 5. Liver hemangioma could be caused by hormonal therapy. Stable. Follow with the PCP 6. DVT prophylaxis: Lovenox 7. CODE STATUS: Full Medical - PN: Qual - VTE Deep Vein Thrombosis/Pulmonary Embolism Present on Admission: No
[2019-08-29] MEDS: ACETAMINOPHEN 325 MG TABLET PO PRN ×3 (05:00→17:05)
[2019-08-29] MEDS: 0.9 % SODIUM CHLORIDE 1,000 ML IV SCH ×2 (05:42→11:52)
[2019-08-29 06:02] LABS: Hematocrit 28.3 % (34.1-44.9); Hemoglobin 9.5 g/dL (11.2-15.7); Mean Cell Volume 87.6 fL (80.0-100.0); Mean Corpuscular HGB Conc 33.6 g/dL (31.0-36.0); Mean Platelet Volume 10.3 fL (7.4-10.4); Platelet Count 348 K/mcL (140-440); RBC 3.23 M/mcL (3.59-5.38); Red Cell Distribution Width 12.9 % (11.5-14.5); WBC 13.5 K/mcL (4.50-11.00)
[2019-08-29] MEDS: 0.9 % SODIUM CHLORIDE 10 ML SYRINGE IV SCH ×3 (06:02→22:18)
[2019-08-29 06:30] LABS: ALT/SGPT 105 U/l (0-40); AST/SGOT 107 U/l (0-37); Albumin 2.7 gm/dL (3.2-5.2); Albumin/Globulin Ratio 0.8 (1.0-2.3); Alkaline Phosphatase 207 U/L (39-117); Bilirubin,Total 0.7 mg/dL (0.0-1.0); Calcium 8.3 mg/dl (8.6-10.4); Carbon Dioxide 21 mmol/L (22-30); Globulin 3.6 gm/dL (2.2-3.7); Glomerular Filtration Rate 104; Glucose 90 mg/dL (70-105)
[2019-08-29 06:42] LABS: Blood Urea Nitrogen 7 mg/dl (8-23); Chloride 109 mmol/L (96-108)
[2019-08-29] MEDS: PANTOPRAZOLE 40 MG TABLET PO SCH (06:57)
[2019-08-29] MEDS: CEFEPIME 2 GM VIAL IV SCH (06:57)
[2019-08-29 07:26] LABS: Anisocytosis FEW (NONE SEEN); Band Neutrophils % 1 % (0-10); Eosinophils % (Manual) 1 % (0-7); Hypochromasia FEW (NONE SEEN); Lymphocytes % 16 % (15-49); Monocytes % (Manual) 2 % (1-12); Myelocytes % 1 % (0-0); Platelet Estimate NORMAL (NORMAL); Polychromasia FEW (NONE SEEN); RBC Morphology ABNORM (NORMAL); Segmented Neutrophils % 79 % (38-78)
[2019-08-29] MEDS: DOCUSATE SODIUM 100 MG CAPSULE PO SCH ×2 (09:14→22:20)
[2019-08-29] MEDS: ONDANSETRON 4 MG/2 ML VIAL IV PRN (09:18)
--- NOTE | 2019-08-29 09:36 | Discharge Summary ---
Medical - DS: Prov Patient information: Note initiated : 08/29/19 at 9:33 am Service Date, if different from initiated Date: [] Patient: Yoselin Escobedo a 63 y/o F admitted on 08/25/19 for Right Leg Pain, Nausea. Chief Complaint: [] Referred to H&P by Soto Landeros M.D.> 08/25/19 Ms. Escobedo is a 63 year old F with a past medical history of asthma who presented to the ER due to right knee redness and pain which started yesterday afternoon at 4:30 PM associated with nausea vomiting. Today patient started to have abdominal pain and watery diarrhea. She has not had 5 bowel movements so far. Otherwise patient denies fever, chills, headache, chest pain, shortness of breath, dysuria, or problems with other joints. Denies injury, recent travel or insect bites. Patient has never had similar problem in the past. In the ER, arthrocentesis was performed and 1 dose of vancomycin was given. When I saw this patient in the ER, other than the symptoms mentioned above, patient was fine. Date of admission: 08/25/19 19:35 Discharge date: 08/29/19 Primary care physician: Petty Cornejo Consults: 08/25/19 17:48 Consult to Physician [CONS] Stat Comment: Consulting Provider: Oswaldo Salmon Reason For Exam: Physician to Consult 08/25/19 17:49 Consult to Physician [CONS] Stat Comment: Consulting Provider: Soto Landeros Reason For Exam: Physician to Consult 08/26/19 11:55 Consult to Infectious Disease [CONS] Routine Comment: Consulting Provider: Daniel Mckeon Reason For Exam: knee cellulitis Medical - DS: Meds - Discharge Medications Active and Home Medications: Home Medications albuterol sulfate 2.5 mg/0.5 mL solution for nebulization 2.5 mg INHALATION Q20M 08/18/19 [History Confirmed 08/25/19 Last Taken Unknown] albuterol sulfate 90 mcg/actuation aerosol inhaler 2 puff INHALATION Q6H PRN 08/18/19 [History Confirmed 08/25/19 Last Taken Unknown] azithromycin 250 mg tablet See Rx Instructions PO .COMPLEX #6 tab 08/18/19 [Rx Confirmed 08/25/19 Last Taken Unknown] compressor, for nebulizer See Rx Instructions .ROUTE .MEDSUPPLY #1 each 08/18/19 [History Confirmed 08/25/19 Last Taken Unknown] conj estrog-medroxyprogest evelina PO QDAY 08/18/19 [History Confirmed 08/18/19 Last Taken Unknown] fluticasone 500 mcg-salmeterol 50 mcg/dose blistr powdr for inhalation 1 inh INHALATION BID 08/18/19 [History Confirmed 08/25/19 Last Taken Unknown] montelukast 10 mg tablet 10 mg PO QDAY 08/18/19 [History Confirmed 08/25/19 Last Taken Unknown] prednisone 20 mg tablet See Rx Instructions PO QDAY #27 tab 08/18/19 [Rx Confirmed 08/25/19 Last Taken Unknown] Medical - DS: Hosp - Time Spent with Patient Total time spent providing and/or coordinating discharge services: Medical - DS: Exam - Constitutional Vitals: Vital Signs Temp Pulse Resp BP Pulse Ox 08/29/19 07:48 98.1 F 73 20 151/82 97 08/29/19 04:00 98.0 F 71 22 161/81 98 08/29/19 00:00 98.1 F 84 18 138/85 99 08/28/19 20:31 99 08/28/19 20:09 98.1 F 80 22 139/75 100 08/28/19 15:48 94 H 18 152/82 95 08/28/19 11:47 98.8 F 77 18 144/70 99 Intake and Output 08/28/19 08/29/19 08/29/19 21:59 05:59 13:59 Intake Total 1500 Output Total 1025 1475 200 Balance -1025 25 -200 Intake: IV 1000 Sodium Chloride 0.9% 1,000 ml @ 1000 75 mls/hr IV .[id number] COUNT INCLUDES [facility] Rx#: [id number] Oral 500 Output: Urine Catheter Amount 300 Void Amount 1025 1175 200 Other: Urine Appearance Clear Urine Color Bright Yellow Urine Odor Normal Stool Size Small Small Small Stool Color Brown Brown Brown Stool Consistency Soft Soft Soft # Bowel Movements 1 1 Weight 57.062 kg Medical - DS: Data Labs on day of discharge: Labs from last 24 hours 08/29/19 08/29/19 08/28/19 18:45 04:32 08:20 WBC 13.5 H RBC 3.23 L Hgb 9.5 L Hct 28.3 L MCV 87.6 MCH 29.4 MCHC 33.6 RDW 12.9 Plt Count 348 MPV 10.3 Total Counted 100 Seg Neutrophils % 79 H Band Neutrophils % 1 Lymphocytes % 16 Monocytes % (Manual) 2 Eosinophils % (Manual) 1 Myelocytes % 1 H Platelet Estimate Normal RBC Morphology Abnorm A Polychromasia Few A Hypochromasia Few A Anisocytosis Few A Sodium 141 Potassium 3.9 Chloride 109 H Carbon Dioxide 21 L Anion Gap 11.0 BUN 7 L Creatinine 0.5 L GFR Calculation 104 Glucose 90 Calcium 8.3 L Magnesium 1.8 Total Bilirubin 0.7 AST 107 H ALT 105 H Alkaline Phosphatase 207 H Total Protein 6.3 Albumin 2.7 L Globulin 3.6 Albumin/Globulin Ratio 0.8 L Vancomycin Trough 08/28/19 08/28/19 08/28/19 05:05 05:05 05:05 WBC 21.5 H RBC 3.34 L Hgb 9.9 L Hct 29.2 L MCV 87.4 MCH 29.6 MCHC 33.9 RDW 12.8 Plt Count 302 MPV 10.8 H Total Counted 100 Seg Neutrophils % 86 H Band Neutrophils % 8 Lymphocytes % 5 L Monocytes % (Manual) 1 Eosinophils % (Manual) Myelocytes % Platelet Estimate Normal RBC Morphology Normal Polychromasia Hypochromasia Anisocytosis Sodium 137 Potassium 2.9 L* Chloride 103 Carbon Dioxide 21 L Anion Gap 13.0 BUN 8 Creatinine 0.5 L GFR Calculation 104 Glucose 88 Calcium 8.2 L Magnesium Total Bilirubin 0.7 AST 38 H ALT 38 Alkaline Phosphatase 171 H Total Protein 6.4 Albumin 3.1 L Globulin 3.3 Albumin/Globulin Ratio 0.9 L Vancomycin Trough 6.7 Preliminary micro results at discharge 08/25/19 12:19 Blood Culture - Preliminary Blood 08/25/19 12:26 Blood Culture - Preliminary Blood Medical - DS: A/P - Patient/Caregiver Discharge Instructions Additional Instructions: This discharge packet is provided to you to help keep you informed about your care. We want to ensure you get everything you need when you go home. You will also be receiving a call from us in a few days to follow up with you and see how you are doing since your discharge. This gives us a chance to listen to any concerns you maybe experiencing since you were discharged or any additional needs you may have, as well as providing us feedback on your care experience. We strive to always provide excellent care and thank you for your feedback and for choosing [facility]. - Follow up Plan Follow up with: Petty Cornejo MD [Primary Care Provider] - 09/04/19 10:00 am (Please arrive 15 minutes early) Prognosis: Fair Medical - DS: Qual - VTE Deep Vein Thrombosis/Pulmonary Embolism Present on Admission: No
--- NOTE | 2019-08-29 10:01 | Internal Med Progress Note ---
Medical - PN: Subj Patient information: Note initiated : 08/29/19 at 9:58 am Service Date, if different from initiated Date: [] Patient: Yoselin Escobedo 63 y/o F admitted on 08/25/19 for Right Leg Pain, Nausea. Chief Complaint: [] Interval history 08/25 Patient feels better. No nausea. She had only 1 bowel movement this morning. She still has right knee pain. Patient still has low grade fever, 100.9 White blood cells 43 today, it was 32 yesterday 08/26 She seems to feel better. But her redness over right leg continues to extend N/V/D improved 08/27 Patient states that she is feeling better. Afebrile white blood cells trending down As per ID Dr. Li, continue current antibiotics for 1-2 more days K 2.9 Magnesium 1.8 Echo report pending 08/28 Today pt complains of nausea. But she did not vomit. She also told me that she is unable to walk and lives on high but there is no elevator available. No overnight events ROS Constitutional: No symptoms reported Ears: No symptoms reported Nose, mouth and throat: No symptoms reported Cardiovascular: No symptoms reported Respiratory: No symptoms reported Gastrointestinal: No symptoms reported Musculoskeletal: arthralgias, right leg pain Neurological: No symptoms reported Psychiatric: No symptoms reported Endocrine: No symptoms reported Hematologic/Lymphatic: No symptoms reported - Constitutional Vitals: Vital Signs Temp Pulse Resp BP Pulse Ox 98.1 F 73 20 151/82 97 08/29/19 07:48 08/29/19 07:48 08/29/19 07:48 08/29/19 07:48 08/29/19 07:48 Period Temp Pulse Resp BP Sys/Werner Pulse Ox Last 24 Hr 98.0 F-98.8 F 71-94 18-22 138-161/70-85 95-100 Intake and Output 08/28/19 08/29/19 08/29/19 21:59 05:59 13:59 Intake Total 1500 Output Total 1025 1475 200 Balance -1025 25 -200 Weight 57.062 kg Intake & Output: Intake & Output 08/28/19 08/29/19 08/29/19 21:59 05:59 13:59 Intake Total 1500 Output Total 1025 1475 200 Balance -1025 25 -200 Weight 57.062 kg Intake: IV 1000 Sodium Chloride 0.9% 1,000 ml @ 1000 75 mls/hr IV .[id number] [facility] Rx#: [id number] Oral 500 Output: Urine Catheter Amount 300 Void Amount 1025 1175 200 Other: Urine Appearance Clear Urine Color Bright Yellow Urine Odor Normal Stool Size Small Small Small Stool Color Brown Brown Brown Stool Consistency Soft Soft Soft # Bowel Movements 1 1 - Additional findings Additional findings: General appearance: cooperative, no acute distress Head exam: atraumatic, normal inspection, normocephalic Eye exam: EOMI, PERRL Sclera: bilateral: normal inspection ENT exam: mucous membranes moist Neck exam: full ROM Neck exam: no tenderness Respiratory exam: normal respiratory exam. Absent: rales, rhonchi, wheezes Cardiovascular exam: normal rate and rhythm, +S1, +S2 GI/Abdominal exam: normal bowel sounds, soft, tenderness (very mild tenderness over epigastric area) Extremities exam: right leg tenderness, erythema (significantly improved) Neurological exam: alert, CN II-XII intact, oriented X3, reflexes normal Psychiatric exam: flat affect, normal mood Skin exam: intact Medical - PN: Obj Da - Labs CBC & Chem 7: 08/29/19 04:32 08/29/19 18:45 Labs: Abnormal Lab Results 08/29/19 08/29/19 08/28/19 18:45 04:32 05:05 WBC 13.5 H RBC 3.23 L Hgb 9.5 L Hct 28.3 L MPV Seg Neutrophils % 79 H Band Neutrophils % Lymphocytes % Myelocytes % 1 H WBC Morphology Dohle Bodies RBC Morphology Abnorm A Polychromasia Few A Hypochromasia Few A Anisocytosis Few A RBC Fragments Potassium 2.9 L* Chloride 109 H Carbon Dioxide 21 L 21 L BUN 7 L Creatinine 0.5 L 0.5 L Calcium 8.3 L 8.2 L AST 107 H 38 H ALT 105 H Alkaline Phosphatase 207 H 171 H Total Protein Albumin 2.7 L 3.1 L Albumin/Globulin Ratio 0.8 L 0.9 L 08/28/19 08/28/19 08/28/19 05:05 05:05 05:05 WBC 21.5 H 23.1 H RBC 3.34 L 3.03 L Hgb 9.9 L 9.1 L Hct 29.2 L 26.7 L MPV 10.8 H Seg Neutrophils % 86 H 82 H Band Neutrophils % Lymphocytes % 5 L 4 L Myelocytes % 1 H WBC Morphology Dohle Bodies RBC Morphology Polychromasia Hypochromasia Anisocytosis RBC Fragments Potassium 3.2 L Chloride Carbon Dioxide BUN Creatinine 0.5 L Calcium 8.0 L AST 40 H ALT Alkaline Phosphatase 140 H Total Protein 5.8 L Albumin 2.4 L Albumin/Globulin Ratio 0.7 L 08/27/19 08/27/19 08/26/19 05:20 05:05 05:15 WBC 26.4 H 33.3 H* RBC 3.03 L Hgb 9.1 L Hct 27.0 L 33.8 L MPV Seg Neutrophils % Band Neutrophils % 17 H Lymphocytes % 5 L Myelocytes % WBC Morphology Abnorm A Dohle Bodies Few A RBC Morphology Abnorm A Polychromasia Hypochromasia Anisocytosis RBC Fragments Rare A Potassium Chloride Carbon Dioxide 21 L BUN Creatinine Calcium 7.6 L AST ALT Alkaline Phosphatase 133 H Total Protein 5.5 L Albumin 2.5 L Albumin/Globulin Ratio 0.8 L Meds: Medications Acetaminophen (Tylenol) 650 mg PO Q6HP PRN; Protocol PRN Reason: Per Pain Protocol/Fever > 101 Last Admin: 08/29/19 05:00 Dose: 650 mg Documented by: Albuterol Sulfate (Ventolin) 2 puff INH Q6HP PRN PRN Reason: Shortness Of Breath Albuterol/Ipratropium (Duoneb) 3 ml NEB Q6HRT PRN PRN Reason: Shortness Of Breath Cephalexin HCl (Keflex) 500 mg PO QID [facility]; Protocol Docusate Sodium (Colace) 100 mg PO BID [facility] Last Admin: 08/29/19 09:14 Dose: Not Given Documented by: Doxycycline Hyclate (Doxycycline Hyclate) 100 mg PO BID [facility]; Protocol Enoxaparin Sodium (Lovenox) 40 mg SQ DAILY [facility] Last Admin: 08/28/19 08:50 Dose: 40 mg Documented by: Sodium Chloride (Sodium Chloride 0.9%) 1,000 mls @ 75 mls/hr IV .[id number] [facility] Last Admin: 08/29/19 05:42 Dose: 75 mls/hr Documented by: Montelukast Sodium (Singular) 10 mg PO QDAY [facility] Last Admin: 08/28/19 08:50 Dose: 10 mg Documented by: Morphine Sulfate (Morphine) 2 mg IV Q4HP PRN; Protocol PRN Reason: Per Pain Protocol Last Admin: 08/28/19 23:04 Dose: 2 mg Documented by: Naloxone HCl (Narcan) 0.1 mg IV Q2MIN PRN PRN Reason: Opiate Reversal Ondansetron HCl (Zofran) 4 mg IV Q4HP PRN; Protocol PRN Reason: Nausea And Vomiting Last Admin: 08/29/19 09:18 Dose: 4 mg Documented by: Pantoprazole Sodium (Protonix) 40 mg PO QAMAC [facility] Last Admin: 08/29/19 06:57 Dose: 40 mg Documented by: Fluticasone/Salmeterol (Advair 500-50 Diskus) 1 puff INH BID [facility] Last Admin: 08/28/19 20:10 Dose: 1 puff Documented by: Senna (Senokot) 2 tab PO HSP PRN PRN Reason: Constipation Sodium Chloride (Saline Flush) 10 ml IV Q8 [facility] Last Admin: 08/29/19 06:02 Dose: Not Given Documented by: Tramadol HCl (Ultram) 50 mg PO Q6HP PRN PRN Reason: Pain Medical - PN: A/P - Time Spent With Patient Total time spent is greater than 50% in coordination of care (as documented) at patient's floor/unit and/or counseling patient: - Narrative A/P Narrative: Assessment: 1. Sepsis 2nd to cellulitis of right knee 2. Acute cellulitis of the right knee popliteal fossa 3. Asthma 4. Acute gastroenteritis 5. Mild ileus 6. Hemangioma, right lobe of the liver 7. Electrolytes derangement Plan: 1. Blood and right knee aspiration culture - no growth Lactic acid 1.2 2. MRI right knee showed Severe cellulitis along the posterior aspect of the knee standing into the distal thigh. irrigation and drainage of the right knee arthroscopically was done by orthopedics team on 08/24 erythematic area significantly improved afebrile, WBC went down to 13.5 As per orth, no evidence of septic arthritis ID consulted, as per Dr. Mckeon, she is cleared to be discharged today. She can be discharged on doxycycline and keflex. She has been on cefepime and vanco in hospital. 3. asthma stable, continue home meds 4. N/V/D improved C diff negative on regular diet Electrolytes are repleted, repeat electrolytes in am 5. Liver hemangioma could be caused by hormonal therapy. Stable. Follow with the PCP 6. DVT prophylaxis: Lovenox 7. 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
[2019-08-29] MEDS: CEPHALEXIN 500 MG CAPSULE PO SCH ×4 (11:19→22:17)
[2019-08-29] MEDS: DOXYCYCLINE HYCLATE 100 MG TABLET.ORL PO SCH ×2 (11:19→22:17)
[2019-08-29] MEDS: MONTELUKAST 10 MG TABLET PO SCH (11:19)
[2019-08-29] MEDS: ENOXAPARIN 40 MG/0.4 ML SYRINGE SQ SCH (11:19)
[2019-08-29] MEDS: FLUTICASONE/SALMETEROL 500/50 INHALER #14 INH SCH ×2 (11:20→22:19)
--- NOTE | 2019-08-29 13:28 | Internal Med Progress Note ---
Medical - PN: Subj Patient information: Note initiated : 08/29/19 at 1:23 pm Service Date, if different from initiated Date: [] Patient: Yoselin Escobedo a 63 y/o F admitted on 08/25/19 for Right Leg Pain, Nausea. Chief Complaint: [] Interval history: Ms. Escobedo is a 63 year old F with a past medical history of asthma who presented to the ER due to right knee redness and pain which started yesterday afternoon at 4:30 PM associated with nausea vomiting. Today patient started to have abdominal pain and watery diarrhea. She has not had 5 bowel movements so far. Otherwise patient denies fever, chills, headache, chest pain, shortness of breath, dysuria, or problems with other joints. Denies injury, recent travel or insect bites. Patient has never had similar problem in the past. In the ER, arthrocentesis was performed and 1 dose of vancomycin was given. When I saw this patient in the ER, other than the symptoms mentioned above, patient was fine. 08/25 Patient feels better. No nausea. She had only 1 bowel movement this morning. She still has right knee pain. Patient still has low grade fever, 100.9 White blood cells 43 today, it was 32 yesterday 08/26 She seems to feel better. But her redness over right leg continues to extend N/V/D improved 08/27 Patient states that she is feeling better. Afebrile white blood cells trending down As per ID Dr. Li, continue current antibiotics for 1-2 more days K 2.9 Magnesium 1.8 Echo report pending 08/28 Today pt complains of nausea. But she did not vomit. She also told me that she is unable to walk and lives on high but there is no elevator available. No overnight events - Constitutional Vitals: Vital Signs Temp Pulse Resp BP Pulse Ox 98.1 F 73 20 151/82 97 08/29/19 07:48 08/29/19 07:48 08/29/19 07:48 08/29/19 07:48 08/29/19 07:48 Period Temp Pulse Resp BP Sys/Werner Pulse Ox Last 24 Hr 98.0 F-98.1 F 71-94 18-22 138-161/75-85 95-100 Intake and Output 0308/29/19 08/29/19 21:59 05:59 13:59 Intake Total 1500 Output Total 1025 1475 200 Balance -1025 25 -200 Weight 57.062 kg Intake & Output: Intake & Output 08/28/19 08/29/19 08/29/19 21:59 05:59 13:59 Intake Total 1500 Output Total 1025 1475 200 Balance -1025 25 -200 Weight 57.062 kg Intake: IV 1000 Sodium Chloride 0.9% 1,000 ml @ 1000 75 mls/hr IV .[id number] [facility] Rx#: [id number] Oral 500 Output: Urine Catheter Amount 300 Void Amount 1025 1175 200 Other: Urine Appearance Clear Urine Color Bright Yellow Urine Odor Normal Stool Size Small Small Small Stool Color Brown Brown Brown Stool Consistency Soft Soft Soft # Bowel Movements 1 1 Exam: General: Alert, Awake, No acute Distress Eyes/N/T: EOMI, Head/Neck: neck supple, CV: RRR, No murmurs, Pulm: Clear b/l, no wheezing/rhonchi/rales Abd: soft, ,mild tender epigastrium, +BS x4 Ext: no clubbing/cyanosis. RLE erythema/tenderness Neuro: Alert, no focal deficits, moves all extremities, Skin: warm/dry Medical - PN: Obj Da - Labs CBC & Chem 7: 08/29/19 04:32 08/29/19 18:45 Labs: Abnormal Lab Results 08/29/19 08/29/19 08/28/19 18:45 04:32 05:05 WBC 13.5 H RBC 3.23 L Hgb 9.5 L Hct 28.3 L MPV Seg Neutrophils % 79 H Band Neutrophils % Lymphocytes % Myelocytes % 1 H WBC Morphology Dohle Bodies RBC Morphology Abnorm A Polychromasia Few A Hypochromasia Few A Anisocytosis Few A RBC Fragments Potassium 2.9 L* Chloride 109 H Carbon Dioxide 21 L 21 L BUN 7 L Creatinine 0.5 L 0.5 L Calcium 8.3 L 8.2 L AST 107 H 38 H ALT 105 H Alkaline Phosphatase 207 H 171 H Total Protein Albumin 2.7 L 3.1 L Albumin/Globulin Ratio 0.8 L 0.9 L 08/28/19 08/28/19 08/28/19 05:05 05:05 05:05 WBC 21.5 H 23.1 H RBC 3.34 L 3.03 L Hgb 9.9 L 9.1 L Hct 29.2 L 26.7 L MPV 10.8 H Seg Neutrophils % 86 H 82 H Band Neutrophils % Lymphocytes % 5 L 4 L Myelocytes % 1 H WBC Morphology Dohle Bodies RBC Morphology Polychromasia Hypochromasia Anisocytosis RBC Fragments Potassium 3.2 L Chloride Carbon Dioxide BUN Creatinine 0.5 L Calcium 8.0 L AST 40 H ALT Alkaline Phosphatase 140 H Total Protein 5.8 L Albumin 2.4 L Albumin/Globulin Ratio 0.7 L 08/27/19 08/27/19 05:20 05:05 WBC 26.4 H RBC 3.03 L Hgb 9.1 L Hct 27.0 L MPV Seg Neutrophils % Band Neutrophils % 17 H Lymphocytes % 5 L Myelocytes % WBC Morphology Abnorm A Dohle Bodies Few A RBC Morphology Abnorm A Polychromasia Hypochromasia Anisocytosis RBC Fragments Rare A Potassium Chloride Carbon Dioxide 21 L BUN Creatinine Calcium 7.6 L AST ALT Alkaline Phosphatase 133 H Total Protein 5.5 L Albumin 2.5 L Albumin/Globulin Ratio 0.8 L Meds: Medications Acetaminophen (Tylenol) 650 mg PO Q6HP PRN; Protocol PRN Reason: Per Pain Protocol/Fever > 101 Last Admin: 08/29/19 11:06 Dose: 650 mg Documented by: Albuterol Sulfate (Ventolin) 2 puff INH Q6HP PRN PRN Reason: Shortness Of Breath Albuterol/Ipratropium (Duoneb) 3 ml NEB Q6HRT PRN PRN Reason: Shortness Of Breath Cephalexin HCl (Keflex) 500 mg PO QID [facility]; Protocol Last Admin: 08/29/19 11:19 Dose: 500 mg Documented by: Docusate Sodium (Colace) 100 mg PO BID [facility] Last Admin: 08/29/19 09:14 Dose: Not Given Documented by: Doxycycline Hyclate (Doxycycline Hyclate) 100 mg PO BID [facility]; Protocol Last Admin: 08/29/19 11:19 Dose: 100 mg Documented by: Enoxaparin Sodium (Lovenox) 40 mg SQ DAILY [facility] Last Admin: 08/29/19 11:19 Dose: 40 mg Documented by: Montelukast Sodium (Singular) 10 mg PO QDAY [facility] Last Admin: 08/29/19 11:19 Dose: 10 mg Documented by: Morphine Sulfate (Morphine) 2 mg IV Q4HP PRN; Protocol PRN Reason: Per Pain Protocol Last Admin: 08/28/19 23:04 Dose: 2 mg Documented by: Naloxone HCl (Narcan) 0.1 mg IV Q2MIN PRN PRN Reason: Opiate Reversal Ondansetron HCl (Zofran) 4 mg IV Q4HP PRN; Protocol PRN Reason: Nausea And Vomiting Last Admin: 08/29/19 09:18 Dose: 4 mg Documented by: Pantoprazole Sodium (Protonix) 40 mg PO QAMAC [facility] Last Admin: 08/29/19 06:57 Dose: 40 mg Documented by: Fluticasone/Salmeterol (Advair 500-50 Diskus) 1 puff INH BID [facility] Last Admin: 08/29/19 11:20 Dose: 1 puff Documented by: Senna (Senokot) 2 tab PO HSP PRN PRN Reason: Constipation Sodium Chloride (Saline Flush) 10 ml IV Q8 [facility] Last Admin: 08/29/19 06:02 Dose: Not Given Documented by: Tramadol HCl (Ultram) 50 mg PO Q6HP PRN PRN Reason: Pain Medical - PN: A/P - Time Spent With Patient Total time spent is greater than 50% in coordination of care (as documented) at patient's floor/unit and/or counseling patient: - Narrative A/P Narrative: Assessment: * Sepsis: 2/2 cellulitis of right knee * Acute cellulitis of the right knee popliteal fossa - MRI right knee showed Severe cellulitis along the posterior aspect of the knee standing into the distal thigh. -irrigation and drainage of the right knee arthroscopically was done by orthopedics team on 08/24 -As per orth, no evidence of septic arthritis * Asthma * Acute gastroenteritis -c diff neg * Mild ileus * Hemangioma, right lobe of the liver * Electrolytes derangement Plan: - Blood and right knee aspiration culture - no growth -ID following. She can be discharged on doxycycline and keflex. She has been on cefepime and vanco in hospital. - asthma stable, continue home meds -on regular diet -Electrolytes are repleted, repeat electrolytes in am - Liver hemangioma could be caused by hormonal therapy. Stable. Follow with the PCP -CM for placement - DVT prophylaxis: Lovenox CODE STATUS: Full Medical - PN: Qual - VTE Deep Vein Thrombosis/Pulmonary Embolism Present on Admission: No
--- NOTE | 2019-08-29 13:32 | Discharge Summary ---
Medical - DS: Prov Patient information: Note initiated : 08/29/19 at 1:28 pm Service Date, if different from initiated Date: [] Patient: Yoselin Escobedo 63 y/o F admitted on 08/25/19 for Right Leg Pain, Nausea. Chief Complaint: [] Date of admission: 08/25/19 19:35 Discharge date: 08/31/19 Primary care physician: Petty Cornejo Consults: 08/25/19 17:48 Consult to Physician [CONS] Stat Comment: Consulting Provider: Oswaldo Salmon Reason For Exam: Physician to Consult 08/25/19 17:49 Consult to Physician [CONS] Stat Comment: Consulting Provider: Soto Landeros Reason For Exam: Physician to Consult 08/26/19 11:55 Consult to Infectious Disease [CONS] Routine Comment: Consulting Provider: Daniel Mckeon Reason For Exam: knee cellulitis Medical - DS: Meds - Discharge Medications Prescriptions: traMADol [Ultram] 50 mg PO QHS PRN #20 tab PRN Reason: Pain Doxycycline Monohydrate 100 mg PO BID #8 tab Cephalexin [Keflex] 500 mg PT QID #16 ml Active and Home Medications: Home Medications albuterol sulfate 2.5 mg/0.5 mL solution for nebulization 2.5 mg INHALATION Q20M 08/18/19 [History Confirmed 08/25/19 Last Taken Unknown] albuterol sulfate 90 mcg/actuation aerosol inhaler 2 puff INHALATION Q6H PRN 08/18/19 [History Confirmed 08/25/19 Last Taken Unknown] azithromycin 250 mg tablet See Rx Instructions PO .COMPLEX #6 tab 08/18/19 [Rx Confirmed 08/25/19 Last Taken Unknown] compressor, for nebulizer See Rx Instructions .ROUTE .MEDSUPPLY #1 each 08/18/19 [History Confirmed 08/25/19 Last Taken Unknown] conj estrog-medroxyprogest evelina PO QDAY 08/18/19 [History Confirmed 08/18/19 Last Taken Unknown] fluticasone 500 mcg-salmeterol 50 mcg/dose blistr powdr for inhalation 1 inh INHALATION BID 08/18/19 [History Confirmed 08/25/19 Last Taken Unknown] montelukast 10 mg tablet 10 mg PO QDAY 08/18/19 [History Confirmed 08/25/19 Last Taken Unknown] prednisone 20 mg tablet See Rx Instructions PO QDAY #27 tab 08/18/19 [Rx Confirmed 08/25/19 Last Taken Unknown] Medical - DS: Hosp Hospital Course: Ms. Escobedo is a 63 year old F with a past medical history of asthma who presented to the ER due to right knee redness and pain which started yesterday afternoon at 4:30 PM associated with nausea vomiting. Today patient started to have abdominal pain and watery diarrhea. She has not had 5 bowel movements so far. Otherwise patient denies fever, chills, headache, chest pain, shortness of breath, dysuria, or problems with other joints. Denies injury, recent travel or insect bites. Patient has never had similar problem in the past. In the ER, arthrocentesis was performed and 1 dose of vancomycin was given. When I saw this patient in the ER, other than the symptoms mentioned above, patient was fine. 08/25 Patient feels better. No nausea. She had only 1 bowel movement this morning. She still has right knee pain. Patient still has low grade fever, 100.9 White blood cells 43 today, it was 32 yesterday 08/26 She seems to feel better. But her redness over right leg continues to extend N/V/D improved 08/27 Patient states that she is feeling better. Afebrile white blood cells trending down As per ID Dr. Li, continue current antibiotics for 1-2 more days K 2.9 Magnesium 1.8 Echo report pending 08/28 Today pt complains of nausea. But she did not vomit. She also told me that she is unable to walk and lives on high but there is no elevator available. No overnight events 08/29 Slept better. Doing well. Occasional headache. Right leg dry cans back tender. No other complaints. Hoping for rehab facility. Asking for antifungal for vaginal yeast infection. 08/30 No overnight events. Patient stable for discharge Assessment: * Sepsis: 2/2 cellulitis of right knee/leg * Acute cellulitis of the right knee popliteal fossa/leg - MRI right knee showed Severe cellulitis along the posterior aspect of the knee standing into the distal thigh. -irrigation and drainage of the right knee arthroscopically was done by orthopedics team on 08/24 -As per orth, no evidence of septic arthritis * Asthma * Acute gastroenteritis -c diff neg * Mild ileus * Hemangioma, right lobe of the liver: Incidentally found, follow-up with PCP * Electrolytes derangement Discharge diagnosis: Right knee cellulitis nostril neuritis ileus Secondary discharge diagnosis: incidentally found hemangioma - Time Spent with Patient Total time spent providing and/or coordinating discharge services: Greater than 30 minutes Medical - DS: Exam - Constitutional Vitals: Vital Signs Temp Pulse Resp BP Pulse Ox 08/29/19 07:48 98.1 F 73 20 151/82 97 08/29/19 04:00 98.0 F 71 22 161/81 98 08/29/19 00:00 98.1 F 84 18 138/85 99 08/28/19 20:31 99 08/28/19 20:09 98.1 F 80 22 139/75 100 08/28/19 15:48 94 H 18 152/82 95 Intake and Output 08/28/19 08/29/19 08/29/19 21:59 05:59 13:59 Intake Total 1500 Output Total 1025 1475 200 Balance -1025 25 -200 Intake: IV 1000 Sodium Chloride 0.9% 1,000 ml @ 1000 75 mls/hr IV .[id number] [facility] Rx#: [id number] Oral 500 Output: Urine Catheter Amount 300 Void Amount 1025 1175 200 Other: Urine Appearance Clear Urine Color Bright Yellow Urine Odor Normal Stool Size Small Small Small Stool Color Brown Brown Brown Stool Consistency Soft Soft Soft # Bowel Movements 1 1 Weight 57.062 kg Medical - DS: Data Labs on day of discharge: Labs from last 24 hours 08/29/19 08/29/19 18:45 04:32 WBC 13.5 H RBC 3.23 L Hgb 9.5 L Hct 28.3 L MCV 87.6 MCH 29.4 MCHC 33.6 RDW 12.9 Plt Count 348 MPV 10.3 Total Counted 100 Seg Neutrophils % 79 H Band Neutrophils % 1 Lymphocytes % 16 Monocytes % (Manual) 2 Eosinophils % (Manual) 1 Myelocytes % 1 H Platelet Estimate Normal RBC Morphology Abnorm A Polychromasia Few A Hypochromasia Few A Anisocytosis Few A Sodium 141 Potassium 3.9 Chloride 109 H Carbon Dioxide 21 L Anion Gap 11.0 BUN 7 L Creatinine 0.5 L GFR Calculation 104 Glucose 90 Calcium 8.3 L Total Bilirubin 0.7 AST 107 H ALT 105 H Alkaline Phosphatase 207 H Total Protein 6.3 Albumin 2.7 L Globulin 3.6 Albumin/Globulin Ratio 0.8 L Preliminary micro results at discharge 08/25/19 12:19 Blood Culture - Preliminary Blood 08/25/19 12:26 Blood Culture - Preliminary Blood Medical - DS: A/P - Patient/Caregiver Discharge Instructions Activity: as per physical therapy Diet: Regular Diet Additional Instructions: This discharge packet is provided to you to help keep you informed about your care. We want to ensure you get everything you need when you go home. You will also be receiving a call from us in a few days to follow up with you and see how you are doing since your discharge. This gives us a chance to listen to any concerns you maybe experiencing since you were discharged or any additional needs you may have, as well as providing us feedback on your care experience. We strive to always provide excellent care and thank you for your feedback and for choosing [facility]. Follow-up with PCP regarding incidentally found hemangioma Prescriptions: traMADol [Ultram] 50 mg PO QHS PRN #20 tab PRN Reason: Pain Doxycycline Monohydrate 100 mg PO BID #8 tab Cephalexin [Keflex] 500 mg PT QID #16 ml - Follow up Plan Follow up with: Petty Cornejo MD [Primary Care Provider] - 09/04/19 10:00 am (Please arrive 15 minutes early) Oswaldo Salmon MD [Physician] - Disposition: Xfer SNF Prognosis: Fair Rehab Potential: Fair I certify that the patient requires SNF services: Yes Overall status at discharge: patient is progressing back to baseline Medical - DS: Qual - VTE Deep Vein Thrombosis/Pulmonary Embolism Present on Admission: No
--- NOTE | 2019-08-29 16:40 | Infectious Disease Prog Note ---
Subjective Patient information: Note initiated : 08/29/19 at 4:32 pm Service Date, if different from initiated Date: [] Patient: Yoselin Escobedo 63 y/o F admitted on 08/25/19 for Right Leg Pain, Nausea. Chief Complaint: [] Interval history: Pt is doing better from leg pain. Mentions that it is much better with ice packs, leg elevation. C/o stomach upset, and not feeling hungry. Feels nauseous. Denies any watery diarrhea. Denies any fever, chills, belly pain. Objective Objective Narrative: ao x 3, in nad no thrush right leg and thigh: the redness has continued to recede. Is just localized to the proximal thigh (area of few cm). There are wrinkles on the leg and thigh s/o decreasing edema. Minimally tender to touch. No pain with movements. Pt able to get up and move around without any pain. - Vital Signs Vital signs: Vital Signs Temp Pulse Resp BP Pulse Ox 08/29/19 07:48 36.7 C 73 20 151/82 97 08/29/19 04:00 36.7 C 71 22 161/81 98 08/29/19 00:00 36.7 C 84 18 138/85 99 08/28/19 20:31 99 08/28/19 20:09 36.7 C 80 22 139/75 100 Intake and Output 08/29/19 08/29/19 08/29/19 05:59 13:59 21:59 Intake Total 1500 Output Total 1475 200 Balance 25 -200 Intake: IV 1000 Sodium Chloride 0.9% 1,000 ml @ 1000 75 mls/hr IV .[id number] [facility] Rx#: [id number] Oral 500 Output: Urine Catheter Amount 300 Void Amount 1175 200 Other: Urine Appearance Clear Urine Color Bright Yellow Urine Odor Normal Stool Size Small Small Stool Color Brown Brown Stool Consistency Soft Soft # Bowel Movements 1 1 Intake & Output: Intake & Output 08/29/19 08/29/19 08/29/19 05:59 13:59 21:59 Intake Total 1500 Output Total 1475 200 Balance 25 -200 Intake: IV 1000 Sodium Chloride 0.9% 1,000 ml @ 1000 75 mls/hr IV .[id number] [facility] Rx#: [id number] Oral 500 Output: Urine Catheter Amount 300 Void Amount 1175 200 Other: Urine Appearance Clear Urine Color Bright Yellow Urine Odor Normal Stool Size Small Small Stool Color Brown Brown Stool Consistency Soft Soft # Bowel Movements 1 1 - Lab 08/29/19 04:32 08/29/19 18:45 Most recent lab results Calcium 8.3 mg/dl (8.6-10.4) L 08/29/19 18:45 Magnesium 1.8 mg/dL (1.6-2.5) 08/28/19 08:20 Microbiology 08/25/19 12:19 Blood Blood Culture - Preliminary 08/25/19 12:26 Blood Blood Culture - Preliminary 08/25/19 15:47 Aspirate - Knee Gram Stain - Final 08/25/19 15:47 Aspirate - Knee Body Fluid Culture - Final 08/26/19 13:42 Stool C. difficile GDH Antigen & Toxins - Final 08/25/19 21:00 Nose - First MRSA (PCR) - Final Medications Active Medications: Acetaminophen (Tylenol) 650 mg PO Q6HP PRN; Protocol PRN Reason: Per Pain Protocol/Fever > 101 Last Admin: 08/29/19 11:06 Dose: 650 mg Documented by: Admin: 08/29/19 05:00 Dose: 650 mg Documented by: Admin: 08/28/19 15:55 Dose: 650 mg Documented by: Admin: 08/28/19 07:50 Dose: 650 mg Documented by: Admin: 08/28/19 02:05 Dose: 650 mg Documented by: PHI Albuterol Sulfate (Ventolin) 2 puff INH Q6HP PRN PRN Reason: Shortness Of Breath Albuterol/Ipratropium (Duoneb) 3 ml NEB Q6HRT PRN PRN Reason: Shortness Of Breath Cephalexin HCl (Keflex) 500 mg PO QID [facility]; Protocol Last Admin: 08/29/19 13:35 Dose: 500 mg Documented by: Admin: 08/29/19 11:19 Dose: 500 mg Documented by: MIRELLA Docusate Sodium (Colace) 100 mg PO BID [facility] Last Admin: 08/29/19 09:14 Dose: Not Given Documented by: MIRELLA Non-Admin Reason: Loose Stool Admin: 08/28/19 20:03 Dose: Not Given Documented by: FLAVIO Non-Admin Reason: Loose Stool Admin: 08/28/19 09:08 Dose: Not Given Documented by: [id number] Non-Admin Reason: Loose Stool Admin: 08/27/19 20:23 Dose: Not Given Documented by: PHI Non-Admin Reason: Loose Stool Doxycycline Hyclate (Doxycycline Hyclate) 100 mg PO BID [facility]; Protocol Last Admin: 08/29/19 11:19 Dose: 100 mg Documented by: MIRELLA Enoxaparin Sodium (Lovenox) 40 mg SQ DAILY [facility] Last Admin: 08/29/19 11:19 Dose: 40 mg Documented by: [id number] Admin: 08/28/19 08:50 Dose: 40 mg Documented by: [id number] Montelukast Sodium (Singular) 10 mg PO QDAY [facility] Last Admin: 08/29/19 11:19 Dose: 10 mg Documented by: Admin: 08/28/19 08:50 Dose: 10 mg Documented by: MIRELLA Morphine Sulfate (Morphine) 2 mg IV Q4HP PRN; Protocol PRN Reason: Per Pain Protocol Last Admin: 08/28/19 23:04 Dose: 2 mg Documented by: FLAVIO Naloxone HCl (Narcan) 0.1 mg IV Q2MIN PRN PRN Reason: Opiate Reversal Ondansetron HCl (Zofran) 4 mg IV Q4HP PRN; Protocol PRN Reason: Nausea And Vomiting Last Admin: 08/29/19 09:18 Dose: 4 mg Documented by: MIRELLA Pantoprazole Sodium (Protonix) 40 mg PO QAMAC [facility] Last Admin: 08/29/19 06:57 Dose: 40 mg Documented by: Admin: 08/28/19 07:50 Dose: 40 mg Documented by: MIRELLA Fluticasone/Salmeterol (Advair 500-50 Diskus) 1 puff INH BID [facility] Last Admin: 08/29/19 11:20 Dose: 1 puff Documented by: Admin: 08/28/19 20:10 Dose: 1 puff Documented by: Admin: 08/28/19 09:46 Dose: 1 puff Documented by: Admin: 08/27/19 20:22 Dose: 1 puff Documented by: PHI Senna (Senokot) 2 tab PO HSP PRN PRN Reason: Constipation Sodium Chloride (Saline Flush) 10 ml IV Q8 [facility] Last Admin: 08/29/19 13:36 Dose: 10 ml Documented by: Admin: 08/29/19 06:02 Dose: Not Given Documented by: [id number] Non-Admin Reason: Continuous IV Admin: 08/28/19 20:11 Dose: Not Given Documented by: [email or web address] Non-Admin Reason: Continuous IV Admin: 08/28/19 14:05 Dose: Not Given Documented by: [id number] Non-Admin Reason: Continuous IV Admin: 08/28/19 05:37 Dose: Not Given Documented by: [email or web address] Non-Admin Reason: Continuous IV Admin: 08/27/19 20:23 Dose: Not Given Documented by: RBLEW Non-Admin Reason: Continuous IV Tramadol HCl (Ultram) 50 mg PO Q6HP PRN PRN Reason: Pain Assessment and Plan - Narrative A/P Narrative: A: 1. 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 Could be site of entry for bacteria - likely etiology would be Strept pyogenes, Gp B Strept , Gp C/G Strept, Staph aureus - MRSA nasal PCR negative. Rt knee aspirate not suggestive of septic arthritis - marked improvement in cellulitis symptoms 2. Diarrhea: stable - sec to antibiotics - Cdiff stool test neg - stool consistency has improved. It could be part of irritable bowel syndrome triggered by food poisoning pt had before admission Recommendations: - Stop IV vanc and IV Cefepime 2 gm q8 hrs - will deescalate to PO Doxycycline 100 mg bid and PO Cephalexin 500 mg qid, for another 4 days - f/u with PCP after discharge - continue leg elevation, ice packs to the affected area Daniel Mckeon MD Infectious diseases
[2019-08-29] MEDS: traMADol 50 MG TABLET PO PRN (22:17)
[2019-08-30] MEDS: ACETAMINOPHEN 325 MG TABLET PO PRN ×4 (02:41→23:35)
[2019-08-30] MEDS: PANTOPRAZOLE 40 MG TABLET PO SCH (06:54)
[2019-08-30] MEDS: 0.9 % SODIUM CHLORIDE 10 ML SYRINGE IV SCH ×3 (06:54→20:40)
--- NOTE | 2019-08-30 07:26 | Internal Med Progress Note ---
Medical - PN: Subj Patient information: Note initiated : 08/30/19 at 7:25 am Service Date, if different from initiated Date: [] Patient: Yoselin Escobedo a 63 y/o F admitted on 08/25/19 for Right Leg Pain, Nausea. Chief Complaint: [] Interval history: Ms. Escobedo is a 63 year old F with a past medical history of asthma who presented to the ER due to right knee redness and pain which started yesterday afternoon at 4:30 PM associated with nausea vomiting. Today patient started to have abdominal pain and watery diarrhea. She has not had 5 bowel movements so far. Otherwise patient denies fever, chills, headache, chest pain, shortness of breath, dysuria, or problems with other joints. Denies injury, recent travel or insect bites. Patient has never had similar problem in the past. In the ER, arthrocentesis was performed and 1 dose of vancomycin was given. When I saw this patient in the ER, other than the symptoms mentioned above, patient was fine. 08/25 Patient feels better. No nausea. She had only 1 bowel movement this morning. She still has right knee pain. Patient still has low grade fever, 100.9 White blood cells 43 today, it was 32 yesterday 08/26 She seems to feel better. But her redness over right leg continues to extend N/V/D improved 08/27 Patient states that she is feeling better. Afebrile white blood cells trending down As per ID Dr. Li, continue current antibiotics for 1-2 more days K 2.9 Magnesium 1.8 Echo report pending 08/28 Today pt complains of nausea. But she did not vomit. She also told me that she is unable to walk and lives [place] high but there is no elevator available. No overnight events 08/29 Slept better. Doing well. Occasional headache. 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 No other complaints. Hoping for rehab facility. Asking for antifungal for vaginal yeast infection. Review of Systems: denies fever/chills/nausea/vomiting/chest or abdominal pain/cough/dyspnea/di arrhea. Otherwise see above. - Constitutional Vitals: Vital Signs Temp Pulse Resp BP Pulse Ox 98.9 F 85 18 140/71 97 08/30/19 02:34 08/30/19 02:34 08/30/19 02:34 08/30/19 02:34 08/30/19 02:34 Period Temp Pulse Resp BP Sys/Werner Pulse Ox Last 24 Hr 98.1 F-99.1 F 73-85 - 116-153/60-82 97-98 Intake and Output 08/29/19 08/30/19 08/30/19 21:59 05:59 13:59 Intake Total 480 150 Balance 480 150 Weight 53.025 kg Intake & Output: Intake & Output 08/29/19 08/30/19 08/30/19 21:59 05:59 13:59 Intake Total 480 150 Balance 480 150 Weight 53.025 kg Intake: Oral 480 150 Other: # Voids 1 Exam: General: Alert, Awake, No acute Distress Eyes/N/T: EOMI, Head/Neck: neck supple, CV: RRR, No murmurs, Pulm: Clear b/l, no wheezing/rhonchi/rales Abd: soft, ,mild tender epigastrium, +BS x4 Ext: no clubbing/cyanosis. RLE erythema/tenderness Neuro: Alert, no focal deficits, moves all extremities, Skin: warm/dry Medical - PN: Obj Da - Labs CBC & Chem 7: 08/29/19 04:32 08/29/19 18:45 Labs: Abnormal Lab Results 08/29/19 08/29/19 08/28/19 18:45 04:32 05:05 WBC 13.5 H RBC 3.23 L Hgb 9.5 L Hct 28.3 L MPV Seg Neutrophils % 79 H Band Neutrophils % Lymphocytes % Myelocytes % 1 H WBC Morphology Dohle Bodies RBC Morphology Abnorm A Polychromasia Few A Hypochromasia Few A Anisocytosis Few A RBC Fragments Potassium 2.9 L* Chloride 109 H Carbon Dioxide 21 L 21 L BUN 7 L Creatinine 0.5 L 0.5 L Calcium 8.3 L 8.2 L AST 107 H 38 H ALT 105 H Alkaline Phosphatase 207 H 171 H Total Protein Albumin 2.7 L 3.1 L Albumin/Globulin Ratio 0.8 L 0.9 L 08/28/19 08/28/19 08/28/19 05:05 05:05 05:05 WBC 21.5 H 23.1 H RBC 3.34 L 3.03 L Hgb 9.9 L 9.1 L Hct 29.2 L 26.7 L MPV 10.8 H Seg Neutrophils % 86 H 82 H Band Neutrophils % Lymphocytes % 5 L 4 L Myelocytes % 1 H WBC Morphology Dohle Bodies RBC Morphology Polychromasia Hypochromasia Anisocytosis RBC Fragments Potassium 3.2 L Chloride Carbon Dioxide BUN Creatinine 0.5 L Calcium 8.0 L AST 40 H ALT Alkaline Phosphatase 140 H Total Protein 5.8 L Albumin 2.4 L Albumin/Globulin Ratio 0.7 L 08/27/19 05:05 WBC RBC Hgb Hct MPV Seg Neutrophils % Band Neutrophils % 17 H Lymphocytes % 5 L Myelocytes % WBC Morphology Abnorm A Dohle Bodies Few A RBC Morphology Abnorm A Polychromasia Hypochromasia Anisocytosis RBC Fragments Rare A Potassium Chloride Carbon Dioxide BUN Creatinine Calcium AST ALT Alkaline Phosphatase Total Protein Albumin Albumin/Globulin Ratio Meds: Medications Acetaminophen (Tylenol) 650 mg PO Q6HP PRN; Protocol PRN Reason: Per Pain Protocol/Fever > 101 Last Admin: 08/30/19 02:41 Dose: 650 mg Documented by: Albuterol Sulfate (Ventolin) 2 puff INH Q6HP PRN PRN Reason: Shortness Of Breath Albuterol/Ipratropium (Duoneb) 3 ml NEB Q6HRT PRN PRN Reason: Shortness Of Breath Cephalexin HCl (Keflex) 500 mg PO QID [facility]; Protocol Last Admin: 08/29/19 22:17 Dose: 500 mg Documented by: Docusate Sodium (Colace) 100 mg PO BID [facility] Last Admin: 08/29/19 22:20 Dose: Not Given Documented by: Doxycycline Hyclate (Doxycycline Hyclate) 100 mg PO BID [facility]; Protocol Last Admin: 08/29/19 22:17 Dose: 100 mg Documented by: Enoxaparin Sodium (Lovenox) 40 mg SQ DAILY [facility] Last Admin: 08/29/19 11:19 Dose: 40 mg Documented by: Montelukast Sodium (Singular) 10 mg PO QDAY [facility] Last Admin: 08/29/19 11:19 Dose: 10 mg Documented by: Morphine Sulfate (Morphine) 2 mg IV Q4HP PRN; Protocol PRN Reason: Per Pain Protocol Last Admin: 08/28/19 23:04 Dose: 2 mg Documented by: Naloxone HCl (Narcan) 0.1 mg IV Q2MIN PRN PRN Reason: Opiate Reversal Ondansetron HCl (Zofran) 4 mg IV Q4HP PRN; Protocol PRN Reason: Nausea And Vomiting Last Admin: 08/29/19 09:18 Dose: 4 mg Documented by: Pantoprazole Sodium (Protonix) 40 mg PO QAMAC [facility] Last Admin: 08/30/19 06:54 Dose: 40 mg Documented by: Fluticasone/Salmeterol (Advair 500-50 Diskus) 1 puff INH BID [facility] Last Admin: 08/29/19 22:19 Dose: 1 puff Documented by: Senna (Senokot) 2 tab PO HSP PRN PRN Reason: Constipation Sodium Chloride (Saline Flush) 10 ml IV Q8 [facility] Last Admin: 08/30/19 06:54 Dose: 10 ml Documented by: Tramadol HCl (Ultram) 50 mg PO Q6HP PRN PRN Reason: Pain Last Admin: 08/29/19 22:17 Dose: 50 mg Documented by: Medical - PN: A/P - Time Spent With Patient Total time spent is greater than 50% in coordination of care (as documented) at patient's floor/unit and/or counseling patient: - Narrative A/P Narrative: Assessment: * Sepsis: 2/2 cellulitis of right knee/leg * Acute cellulitis of the right knee popliteal fossa/leg - MRI right knee showed Severe cellulitis along the posterior aspect of the knee standing into the distal thigh. -irrigation and drainage of the right knee arthroscopically was done by orthopedics team on 08/24 -As per orth, no evidence of septic arthritis * Asthma * Acute gastroenteritis -c diff neg * Mild ileus * Hemangioma, right lobe of the liver * Electrolytes derangement Plan: - Blood and right knee aspiration culture - no growth -ID following. She can be discharged on doxycycline and keflex. - asthma stable, continue home meds -on regular diet -Electrolytes are repleted, repeat electrolytes in am - Liver hemangioma could be caused by hormonal therapy. Stable. Follow with the PCP -CM for placement - DVT prophylaxis: Lovenox CODE STATUS: Full Medical - PN: Qual - VTE Deep Vein Thrombosis/Pulmonary Embolism Present on Admission: No
[2019-08-30] MEDS ORDERED: FLUCONAZOLE 150 MG TABLET PO ONE (08:07)
[2019-08-30] MEDS: ENOXAPARIN 40 MG/0.4 ML SYRINGE SQ SCH (08:19)
[2019-08-30] MEDS: FLUTICASONE/SALMETEROL 500/50 INHALER #14 INH SCH ×2 (08:19→20:39)
[2019-08-30] MEDS: MONTELUKAST 10 MG TABLET PO SCH (08:20)
[2019-08-30] MEDS: CEPHALEXIN 500 MG CAPSULE PO SCH ×4 (08:20→20:39)
[2019-08-30] MEDS: DOXYCYCLINE HYCLATE 100 MG TABLET.ORL PO SCH ×2 (08:20→20:39)
[2019-08-30] MEDS: DOCUSATE SODIUM 100 MG CAPSULE PO SCH ×2 (08:22→20:40)
[2019-08-30] MEDS: ONDANSETRON 4 MG/2 ML VIAL IV PRN (23:32)
[2019-08-30] MEDS: traMADol 50 MG TABLET PO PRN (23:34)
[2019-08-31] MEDS: ACETAMINOPHEN 325 MG TABLET PO PRN ×2 (06:09→11:53)
[2019-08-31] MEDS: 0.9 % SODIUM CHLORIDE 10 ML SYRINGE IV SCH (06:10)
[2019-08-31] MEDS: PANTOPRAZOLE 40 MG TABLET PO SCH (07:12)
[2019-08-31] MEDS: DOXYCYCLINE HYCLATE 100 MG TABLET.ORL PO SCH (08:24)
[2019-08-31] MEDS: ENOXAPARIN 40 MG/0.4 ML SYRINGE SQ SCH (08:24)
[2019-08-31] MEDS: FLUTICASONE/SALMETEROL 500/50 INHALER #14 INH SCH (08:24)
[2019-08-31] MEDS: CEPHALEXIN 500 MG CAPSULE PO SCH ×2 (08:25→12:31)
[2019-08-31] MEDS: MONTELUKAST 10 MG TABLET PO SCH (08:25)
[2019-08-31] MEDS: DOCUSATE SODIUM 100 MG CAPSULE PO SCH (08:25)
== END 2019-08-31 15:16 | DRG 603 ==
LOC: ED 09:48 → ICU 19:35 → MEDSUR 08-29 11:44
PROVIDERS: ADMIT Internal Medicine; ATTEND Internal Medicine